=== PATIENT | male | born 1960 | race Caucasian/White ===

== ENCOUNTER 2017-02-05 09:00 | Inpatient (IN) ==
--- NOTE | 2017-02-03 09:29 | Cardiothoracic History & Phys ---
History of Present Illness Chief complaint: Chest pain History of present illness: Mr. Pederson is a 56 year old male who underwent stress testing as part of his employment physical. This was positive and the patient was advised to have cardiology evaluation. He was seen by Dr. Flores who recommended cardiac catheterization and cardiac cath revealed significant triple-vessel coronary disease and the patient was advised to have bypass surgery. He is to be admitted on 02/05/2017 surgery 02/06/2017. Past medical history: Patient has a history of dyslipidemia and hypertension and gastroesophageal reflux. He also has a history of type 2 diabetes mellitus. His past surgical history shows that he has had a hernia repair and repair of her rotator cuff tear. Family history is significant in that father had type 2 diabetes in both his mother and father had cancer. Patient has never been a smoker or drinker and his review of systems is noncontributory. Physical examination: Patient is well-developed well-nourished white man in no acute distress. Examination head eyes ears nose and throat showed pupils are equal and react to light and extraocular motions are intact. The oropharynx is benign. Examination of the neck shows that there are no masses and there is no thyromegaly and there are no bruits. Examination chest is clear to percussion and auscultation. Examination the heart shows regular sinus rhythm with no murmurs. Termination of the abdomen shows that it is soft nontender and there are no masses or organomegaly. Examination extremities shows no cyanosis or edema. Neurological examination is grossly within normal limits. Assessment: Three-vessel coronary artery disease. Plan: Coronary bypass surgery 02/06/2017. Home Medications Medication Instructions Recorded Confirmed Type Aspirin [Ecotrin] 81 mg PO DAILY 02/01/17 02/02/17 History Atorvastatin [Lipitor] 40 mg PO DAILY 02/01/17 02/02/17 History Carvedilol 12.5 mg PO BID 02/01/17 02/02/17 History Meloxicam [Mobic] 15 mg PO DAILY 02/01/17 02/02/17 History [place]-3 Fatty Acids [Fish Oil 1,000 mg PO BID 02/01/17 02/02/17 History Concentrate] Ramipril [Altace] 10 mg PO DAILY 02/01/17 02/02/17 History metFORMIN [Glucophage] 250 mg PO BID W/MEALS 02/01/17 02/02/17 History Allergies Allergy/AdvReac Type Severity Reaction Status Date / Time clopidogrel [From Plavix] Allergy RASH Verified 02/02/17 06:12 Medical,Surgical,& Family Hx - Medical History Neurology: No history of: Seizures - Social History Smoking Status: Never smoker
[~2017-02-05 09:00] MED LIST: ASPIRIN EC 81 MG TABLET PO SCH; ATORVASTATIN 40 MG TABLET PO SCH; DEXTROSE 50% 25 GM/50 ML SYRINGE IV PRN; GLUCAGON 1 MG VIAL IM PRN; MELOXICAM 7.5 MG TABLET PO SCH
[2017-02-05] MEDS: CHLORHEXIDINE 4% SOLN 118 ML BOTTLE TOP SCH ×2 (13:30→20:28)
[2017-02-05] MEDS ORDERED: CLORAZEPATE 3.75 MG TABLET PO PRN (13:38)
--- NOTE | 2017-02-05 13:53 | EKG Report ---
Stationary ECG Study [facility] Test Date: 02/05/2017 1:54:13 PM Pat Name: EDWARDO SPEAR Department: Room: 277 Gender: M Web Master: ARLETH : 1960 Requested by: John Owen Order Number: [id number] Reading MD: ANDREW SANDHU Intervals [place] Rate: 63 P: 62 MD: 156 QRS: 32 QRSD: 109 T: 29 QT: 384 QTc: 391 Interpretive Statements SINUS RHYTHM Electronically Signed On 02-06-17 07:42:58 CDT by ANDREW SANDHU [email or web address]
[2017-02-05 14:26] LABS: Basophils % 0.4 % (0.0-0.8); Eosinophils # 0.1 10*3/uL (0.0-0.87); Eosinophils % 2.4 % (0.00-10.9); Hematocrit 44.9 VOL% (42.0-52.0); Hemoglobin 15.7 GM/DL (14.0-18.0); Immature Granulocytes % 0.6 %; Immature Granulocytes Absolute 0.03 #; Lymphocytes # 1.9 10*3/uL (1.4-4.0); Lymphocytes % 34.6 % (21.2-54.2); Mean Corpuscular Hemoglobin 31 PG (27-34); Mean Platelet Volume 11.7 FL (9.6-12.0); Monocytes # 0.5 10*3/uL (0.11-0.8); Monocytes % 9.6 % (1.7-12.7); Neutrophils # 2.8 10*3/uL (1.4-7.4); Neutrophils % 52.4 % (38.7-73.9); Platelet Count 189 T/CUMM (130-400); Red Cell Distribution Width 12.8 % (9.3-17.3); White Blood Count 5.4 T/CUMM (4-12)
--- NOTE | 2017-02-05 14:59 | XRay Report ---
History: Coronary artery disease Date: 02/05/2017 Study: Chest x-ray PA and lateral Comparison exam: No previous chest x-ray currently available The cardiomediastinal silhouette and pulmonary vasculature are unremarkable. The lungs and pleural spaces are clear. The osseous structures are unremarkable, aside from some mild to moderate thoracic spondylosis. Impression: No acute cardiopulmonary process PROCEDURE INTERPRETED AT [facility] DEPARTMENT OF RADIOLOGY Final Report Signed by: Dr. Veronica Hahn
[2017-02-05 15:07] LABS: Albumin 3.9 G/DL (3.4-5.0); Bilirubin,Total 0.6 MG/DL (0.2-1.0); Calcium 9.3 MG/DL (8.5-10.1); Osmolality,Calculated 281.5 MOS/KG (273-304); Potassium 4.2 MMOL/L (3.5-5.1); Total Protein 6.8 G/DL (6.4-8.3)
[2017-02-05 16:27] LABS: ABG Base Excess 0.9 MMOL/L (-2.5-2.5); ABG HCO3 25.1 MMOL/L (20-26); ABG Oxygen Saturation 96.5 % (95-100); ABG PCO2 38.8 MM HG (35-48); ABG PO2 86.6 MM HG (80-95); ABG TCO2 21.3 MMOL/L (23-27)
[2017-02-05] MEDS: RAMIPRIL 5 MG CAPSULE PO SCH (16:32)
[2017-02-05] MEDS: CHLORHEXIDINE 0.12% ORAL RINSE 60 ML BOTTLE SWISH/SPIT SCH ×3 (16:33→20:28)
[2017-02-05] MEDS: OMEGA 3 ACID ETHYL ESTERS 1 GM CAPSULE PO SCH ×3 (16:33→20:27)
[2017-02-05] MEDS: SODIUM CHLORIDE 0.9% 1,000 ML IV SCH ×2 (16:35→16:36)
[2017-02-05] MEDS ORDERED: SODIUM CHLORIDE 0.9% 1,000 ML IV SCH (18:00)
[2017-02-05] MEDS: CARVEDILOL 12.5 MG TABLET PO SCH (20:27)
[2017-02-05] MEDS ORDERED: ATORVASTATIN 40 MG TABLET PO SCH (21:00)
[2017-02-05] MEDS ORDERED: ZALEPLON 5 MG CAPSULE PO SCH (21:00)
[2017-02-05] MEDS ORDERED: ASPIRIN EC 81 MG TABLET PO SCH (21:00)
[2017-02-06] MEDS ORDERED: PAPAVERINE 60 MG/2 ML VIAL ONE (04:40)
[2017-02-06] MEDS ORDERED: VANCOMYCIN 1,000 MG VIAL ONE ×3 (04:41→11:37)
[2017-02-06] MEDS ORDERED: FAMOTIDINE 20 MG/2 ML VIAL IV ONE (05:30)
[2017-02-06] MEDS ORDERED: LORazepam 2 MG/1 ML VIAL IV ONE (05:30)
[2017-02-06] MEDS ORDERED: SUFentanil 250 MCG/5 ML AMP ONE (05:31)
[2017-02-06] MEDS ORDERED: MIDAZOLAM 10 MG/2 ML VIAL ONE ×2 (05:32→12:06)
[2017-02-06 05:47] LABS: PT Patient Result 10.5 SECS; Partial Thromboplastin Time 26.5 SECS (0-40)
[2017-02-06] MEDS: CHLORHEXIDINE 4% SOLN 118 ML BOTTLE TOP SCH ×2 (05:50→08:32)
[2017-02-06] MEDS: CARVEDILOL 12.5 MG TABLET PO SCH ×2 (05:50→08:32)
[2017-02-06] MEDS: CHLORHEXIDINE 0.12% ORAL RINSE 60 ML BOTTLE SWISH/SPIT SCH ×3 (05:50→22:56)
[2017-02-06] MEDS: RAMIPRIL 5 MG CAPSULE PO SCH ×2 (05:58→08:32)
[2017-02-06] MEDS ORDERED: CEFUROXIME INJ 1,500 MG in SODIUM CHLORIDE 0.9% 100 ML IV ONE (06:00)
[2017-02-06 06:01] LABS: Calcium 8.8 MG/DL (8.5-10.1); Magnesium 2.7 MG/DL (1.8-2.4); Osmolality,Calculated 280.5 MOS/KG (273-304); Potassium 4.2 MMOL/L (3.5-5.1)
[2017-02-06] MEDS ORDERED: PHENYLEPHRINE 50 MG/5 ML VIAL ONE (06:47)
[2017-02-06] MEDS ORDERED: MINERAL OIL/PETROLATUM OPH OINT 3.5 GM TUBE ONE (06:47)
[2017-02-06] MEDS ORDERED: VECURONIUM 10 MG VIAL IV ONE (06:47)
[2017-02-06] MEDS ORDERED: AMINOCAPROIC ACID 5,000 MG/20 ML VIAL IV ONE (06:47)
[2017-02-06] MEDS ORDERED: CALCIUM CHLORIDE 1,000 MG/10 ML SYRINGE IV ONE (06:47)
[2017-02-06] MEDS ORDERED: NITROPRUSSIDE 50 MG/2 ML VIAL ONE (07:26)
[2017-02-06] MEDS ORDERED: PHENYLEPHRINE DRIP 40 MG/250 ML PREMIX IV ONE (07:26)
[2017-02-06] MEDS ORDERED: ALBUMIN 5% 12.5 GM/250 ML VIAL IV ONE (07:27)
[2017-02-06] MEDS ORDERED: POTASSIUM CHLORIDE RIDER 100 ML IV ONE (07:27)
[2017-02-06] MEDS ORDERED: ATROPINE 1 MG/1 ML VIAL ONE (07:27)
[2017-02-06] MEDS ORDERED: LIDOCAINE 100 MG/5 ML SYRINGE ONE (07:27)
[2017-02-06] MEDS ORDERED: SODIUM BICARBONATE 50 MEQ/50 ML SYRINGE IV ONE ×2 (07:27→10:42)
[2017-02-06] MEDS ORDERED: EPINEPHrine 1 MG/10 ML SYRINGE ONE (07:27)
[2017-02-06 07:33] LABS: ABG Base Excess -1.2 MMOL/L (-2.5-2.5); ABG HCO3 23.4 MMOL/L (20-26); ABG Oxygen Saturation 99.9 % (95-100); ABG PCO2 42.7 MM HG (35-48); ABG PH 7.364 (7.35-7.45); ABG TCO2 20.9 MMOL/L (23-27); Glucose Heart Surgery 127 MG/DL (74-106); Hematocrit Heart Surgery 44.6 PERCENT (42-52); Hemoglobin Heart Surgery 14.5 G/DL (14.0-18.0); Ionized Calcium Arterial 1.17 MMOL/L (1.21-1.46); PCO2 Patient Temp Arterial 42.7 MMHG; PH Patient Temp Arterial 7.364; Patient Temperature 37 CELCIUS; Potassium Heart/CVR 4.3 MMOL/L (3.5-5.1); Sodium Heart/CVR 138 MMOL/L (135-145)
[2017-02-06 07:52] LABS: Apearance,Urine CLEAR (Clear); Bilirubin,Urine Negative (Negative); Blood, Urine Negative (Negative); Glucose,Urine (UA) Negative (Negative); Ketones,Urine Negative (Negative); Nitrite,Urine Negative (Negative); Protein,Urine Negative; RBC,Urine 1 /HPF (0-4); Urine Color Straw (Yellow); Urine Specific Gravity 1.008 (1.001-1.035); Urine Urobilinogen < 2.0 EU/DL (0.2-1.0); WBC,Urine <1 /HPF (0-6)
[2017-02-06] MEDS: OMEGA 3 ACID ETHYL ESTERS 1 GM CAPSULE PO SCH (08:32)
[2017-02-06 09:18] LABS: Hematocrit Heart Surgery 29.6 PERCENT (42-52); Hemoglobin Heart Surgery 9.6 G/DL (14.0-18.0); PCO2 Patient Temp Venous 39.8 MM HG; PH Patient Temp Venous 7.411; VBG Base Excess 0.9 MEQ/L (0-4); VBG HCO3 24.8 MEQ/L (24-28); VBG PCO2 46.1 MMHG (41-51); VBG PH 7.368; VBG PO2 41.9 MMHG (17-40)
[2017-02-06 09:19] LABS: Potassium Heart/CVR 6.6 MMOL/L (3.5-5.1)
[2017-02-06 09:49] LABS: Hematocrit Heart Surgery 35.7 PERCENT (42-52); Hemoglobin Heart Surgery 11.6 G/DL (14.0-18.0); PCO2 Patient Temp Venous 39.9 MM HG; PH Patient Temp Venous 7.386; PO2 Patient Temp Venous 37.4 MM HG; Potassium Heart/CVR 6.3 MMOL/L (3.5-5.1); VBG HCO3 23.2 MEQ/L (24-28); VBG PCO2 46.1 MMHG (41-51); VBG PH 7.343
[2017-02-06 10:40] LABS: ABG Base Excess -1.6 MMOL/L (-2.5-2.5); ABG Oxygen Saturation 96.8 % (95-100); ABG PCO2 44.4 MM HG (35-48); ABG PH 7.345 (7.35-7.45); ABG PO2 92.9 MM HG (80-95); ABG TCO2 21.6 MMOL/L (23-27); Glucose Heart Surgery 173 MG/DL (74-106); Hematocrit Heart Surgery 37.7 PERCENT (42-52); Hemoglobin Heart Surgery 12.3 G/DL (14.0-18.0); Ionized Calcium Arterial 1.24 MMOL/L (1.21-1.46); PCO2 Patient Temp Arterial 44.4 MMHG; PH Patient Temp Arterial 7.345; PO2 Patient Temp Arterial 92.9 MM HG; Patient Temperature 37 CELCIUS; Potassium Heart/CVR 3.9 MMOL/L (3.5-5.1); Sodium Heart/CVR 134 MMOL/L (135-145)
[2017-02-06] MEDS ORDERED: methylPREDNISolone SOD SUC 1,000 MG/8 ML VIAL ONE (10:42)
[2017-02-06] MEDS ORDERED: HEPARIN 10,000 UNIT/10 ML VIAL ONE (10:42)
[2017-02-06] MEDS ORDERED: DEXTROSE 5% KCL 20 MEQ 20 MEQ/1,000 ML BAG IV ONE (10:42)
[2017-02-06] MEDS ORDERED: PROTAMINE SULFATE 250 MG/25 ML VIAL IV ONE (10:42)
[2017-02-06] MEDS ORDERED: MAGNESIUM SULFATE 1 GM/2 ML VIAL ONE (10:42)
[2017-02-06] MEDS ORDERED: ALBUMIN 25% 25 GM/100 ML VIAL IV ONE (10:42)
[2017-02-06] MEDS ORDERED: FUROSEMIDE 20 MG/2 ML VIAL ONE (10:42)
[2017-02-06] MEDS ORDERED: MANNITOL 12.5 GM/50 ML VIAL IV ONE (10:42)
--- NOTE | 2017-02-06 11:27 | Operative Note ---
Date of procedure: 02/06/17 Pre-op diagnosis: Coronary artery disease Post-op diagnosis: same Procedure: Procedure: Coronary bypass grafting 3 with a left internal mammary graft to the anterior descending coronary artery saphenous vein grafts to the obtuse marginal and right posterior descending coronary arteries. Findings: Patient is a 56-year-old man who presented with substernal chest discomfort and cardiac catheterization demonstrating severe triple-vessel coronary disease. Sinus surgery left ventricular function was noted to be essentially within normal limits. Saphenous vein grafts were placed to the right posterior descending and left obtuse marginal coronary arteries. An internal mammary graft was placed to the anterior descending coronary artery. All distal vessels were free of disease at the site of anastomosis and of adequate size. Patient tolerated the procedure well and was returned to recovery in satisfactory condition. Procedure: Patient was brought to the operating room placed on the operating table in supine position. After satisfactory induction of general anesthesia the chest abdomen and legs were prepped and draped in sterile fashion. Greater saphenous vein was harvested from each lower leg and prepared to start as an arterial graft. Incisions in the legs were closed with subcutaneous 3-0 Monocryl in subcuticular 3-0 Monocryl. A standard sternotomy incision was made in the sternum was divided and the heart suspended in a pericardial cradle. Left internal mammary artery was dissected free and prepared as an arterial graft. Patient was prepared for cardiopulmonary bypass with systemic heparinization and cannulation of the ascending aorta and right atrium. Cardiopulmonary bypass was begun and aorta was crossclamped and the heart arrested with cardioplegia solution injected into the aortic root. Heart was protected during the period of crossclamping with topical saline slush. Distal anastomoses were constructed as noted above and then the aorta was unclamped reestablishing cardiac action. Proximal anastomoses were constructed between the ascending aorta and the saphenous vein grafts and then the patient was weaned from cardiopulmonary bypass without difficulty. Heparin effect was reversed with protamine and decannulation carried out with a defects in the ascending aorta and right atrium closed with 3-0 Prolene. The operative field was inspected for hemostasis and this was considered adequate incision was closed with interrupted stainless steel wire and the sternum 0 Monopril in the presternal fascia. Skin was closed with 3-0 subcuticular Monocryl. 2 chest tubes were left in the anterior mediastinum and brought out through separate stab incisions. Sterile dressings were applied the patient was returned to recovery in satisfactory condition. Anesthesia: LILIANA Surgeon / Physician: John Atkins Estimated blood loss: other (Unable to determine because of cardiopulmonary bypass) Condition: stable Disposition: ICU Results - Labs CBC & BMP: 02/06/17 10:35 02/06/17 05:13 Discharge Plan - Discharge Medications No Action Ramipril [Altace] 10 mg PO DAILY [place]-3 Fatty Acids [Fish Oil Concentrate] 1,000 mg PO BID Atorvastatin [Lipitor] 40 mg PO BEDTIME Aspirin [Ecotrin] 81 mg PO BEDTIME metFORMIN [Glucophage] 500 mg PO BID Carvedilol 12.5 mg PO BID - Follow Up or Referral - Forms/Instructions
[2017-02-06] MEDS: LACTATED RINGERS 1,000 ML IV PRN ×3 (11:30→12:09)
[2017-02-06] MEDS ORDERED: PROTAMINE SULFATE 50 MG/5 ML VIAL IV ONE ×2 (11:31→12:45)
[2017-02-06] MEDS: ALBUMIN 5% 12.5 GM in PREMIX 1 EACH IV PRN ×3 (12:04→12:55)
[2017-02-06] MEDS ORDERED: VECURONIUM 10 MG VIAL IV PRN ×2 (12:07)
[2017-02-06] MEDS ORDERED: MIDAZOLAM 10 MG/2 ML VIAL IV PRN (12:07)
[2017-02-06] MEDS ORDERED: DEXTROSE 50% 25 GM/50 ML SYRINGE IV PRN ×2 (12:07)
[2017-02-06] MEDS ORDERED: INSULIN REGULAR 100 UNIT/ML IV ONE (12:07)
[2017-02-06] MEDS ORDERED: INSULIN REGULAR DRIP 100 ML IV SCH (12:07)
[2017-02-06] MEDS ORDERED: PHENYLEPHRINE DRIP 40 MG/250 ML PREMIX IV PRN (12:07)
[2017-02-06] MEDS ORDERED: SUFentanil 50 MCG/ML AMP ONE (12:07)
[2017-02-06] MEDS ORDERED: INSULIN REGULAR 100 UNIT/ML IV PRN (12:07)
[2017-02-06] MEDS ORDERED: MIDAZOLAM 2 MG/2 ML VIAL IV PRN (12:07)
[2017-02-06] MEDS ORDERED: CALCIUM CHLORIDE 1,000 MG/10 ML SYRINGE IV PRN (12:07)
[2017-02-06] MEDS ORDERED: ONDANSETRON 4 MG/2 ML VIAL IV PRN (12:07)
[2017-02-06] MEDS ORDERED: ACETAMINOPHEN 650 MG SUPP RECTAL PRN (12:07)
[2017-02-06] MEDS ORDERED: MEPERIDINE 25 MG/1 ML VIAL IV PRN (12:07)
[2017-02-06] MEDS ORDERED: MAGNESIUM SULF RIDER 4 GM in PREMIX 1 EACH IV PRN (12:07)
[2017-02-06] MEDS ORDERED: LACTATED RINGERS 250 ML IV PRN (12:07)
[2017-02-06] MEDS ORDERED: SODIUM CHLORIDE 0.45% 1,000 ML IV SCH ×2 (12:07)
[2017-02-06] MEDS ORDERED: NITROPRUSSIDE 100 MG in DEXTROSE 5% 250 ML IV PRN (12:07)
[2017-02-06] MEDS ORDERED: MAGNESIUM SULF RIDER 2 GM in PREMIX 1 EACH IV PRN (12:07)
[2017-02-06 12:13] LABS: Basophils % 0.1 % (0.0-0.8); Eosinophils # 0.1 10*3/uL (0.0-0.87); Eosinophils % 0.6 % (0.00-10.9); Hematocrit 30.4 VOL% (42.0-52.0); Hemoglobin 10.4 GM/DL (14.0-18.0); Immature Granulocytes Absolute 0.08 #; Mean Corpuscular HGB Conc 34.2 GM/DL (32-36); Mean Corpuscular Hemoglobin 31 PG (27-34); Mean Corpuscular Volume 90.5 FL (87-102); Mean Platelet Volume 11.5 FL (9.6-12.0); Monocytes # 0.4 10*3/uL (0.11-0.8); Monocytes % 4.9 % (1.7-12.7); Neutrophils # 6.7 10*3/uL (1.4-7.4); Neutrophils % 81.4 % (38.7-73.9); Platelet Count 116 T/CUMM (130-400); Red Blood Count 3.36 MC/CUMM (3.8-5.5); Red Cell Distribution Width 12.8 % (9.3-17.3); White Blood Count 8.2 T/CUMM (4-12)
[2017-02-06 12:19] LABS: ABG Base Excess -3.6 MMOL/L (-2.5-2.5); ABG HCO3 21.4 MMOL/L (20-26); ABG Oxygen Saturation 99.2 % (95-100); ABG PCO2 46.9 MM HG (35-48); ABG PH 7.299 (7.35-7.45); ABG TCO2 21.1 MMOL/L (23-27); Glucose Heart Surgery 133 MG/DL (74-106); Hematocrit Heart Surgery 31.4 PERCENT (42-52); Hemoglobin Heart Surgery 10.2 G/DL (14.0-18.0); Potassium Heart/CVR 3.5 MMOL/L (3.5-5.1)
[2017-02-06] MEDS: POTASSIUM CHLORIDE RIDER 20 MEQ in PREMIX 1 EACH IV PRN ×6 (12:21→22:35)
[2017-02-06] MEDS: KETOROLAC 30 MG/1 ML VIAL IV SCH ×3 (12:25→23:48)
[2017-02-06 12:30] LABS: INR 1.3; PT Patient Result 14.1 SECS; Partial Thromboplastin Time 34.5 SECS (0-40)
[2017-02-06] MEDS ORDERED: ePHEDrine 50 MG/ML AMP ONE (12:36)
[2017-02-06 12:48] LABS: Albumin 2.6 G/DL (3.4-5.0); Bilirubin,Total 0.8 MG/DL (0.2-1.0); Calcium 8.1 MG/DL (8.5-10.1); Magnesium 2.2 MG/DL (1.8-2.4); Osmolality,Calculated 283.3 MOS/KG (273-304); Potassium 3.8 MMOL/L (3.5-5.1); Total Protein 4.2 G/DL (6.4-8.3)
[2017-02-06] MEDS: POTASSIUM CHLORIDE RIDER 10 MEQ in PREMIX 1 EACH IV PRN ×2 (12:51→23:15)
[2017-02-06 13:06] LABS: CKMB % 4.1 %
[2017-02-06 13:08] LABS: Troponin I Only 4.21 NG/ML (0.00-0.045)
--- NOTE | 2017-02-06 13:20 | Cardiothoracic Progress Note ---
Cardiothoracic Subjective Interval history: [place]-Angelica catheter placed via the right subclavian vein. Exam (Progress Note) - Constitutional Vitals: Period Temp Pulse Resp BP Sys/Arvizu Pulse Ox Last 24 Hr 97.5 F-98.6 F 57-75 16-20 122-153/64-78 96-98 Result/EKG - Labs CBC & BMP: 02/06/17 11:28 02/06/17 11:55 Labs: Laboratory Results - last 24 hr 02/05/17 02/05/17 02/05/17 09:29 14:01 14:01 WBC 5.4 RBC 5.10 Hgb 15.7 Hct 44.9 MCV 88.0 MCH 31 MCHC 35.0 RDW 12.8 Plt Count 189 MPV 11.7 Neut % (Auto) 52.4 Lymph % (Auto) 34.6 [place] % (Auto) 9.6 Eos % (Auto) 2.4 Baso % (Auto) 0.4 Neut # (Auto) 2.8 Lymph # (Auto) 1.9 [place] # (Auto) 0.5 Eos # (Auto) 0.1 Baso # (Auto) 0.0 Immature Gran % 0.6 Nucleated RBC % 0.0 Immature Gran # 0.03 Nucleated RBCs # 0.00 Immature Plt Fraction 0.0 INR PT Patient/Control Mix Circ Anticoag PTT Patient Temperature ABG pH 7.420 ABG pH at Pt Temp ABG pCO2 38.8 ABG pCO2 at Pt Temp ABG pO2 86.6 ABG pO2 at Pt Temp ABG HCO3 25.1 ABG Total CO2 21.3 L ABG O2 Saturation 96.5 ABG Base Excess 0.9 ABG Sodium VBG pH VBG pCO2 VBG pO2 VBG HCO3 VBG Total CO2 VBG O2 Saturation VBG Base Excess Hemoglobin Hematocrit Ionized Calcium FiO2 21.00 Sodium 139 Potassium 4.2 Chloride 104 Carbon Dioxide 27 Anion Gap 12.2 BUN 21 H Creatinine 1.30 GFR Calculation 75 BUN/Creatinine Ratio 16.00 Glucose 141 H POC Glucose Calculated Osmolality 281.5 Calcium 9.3 Venous Ioniz Calcium Magnesium Total Bilirubin 0.60 AST 28 ALT 59 Alkaline Phosphatase 70 Total Creatine Kinase CK-MB (CK-2) CK and CKMB Interp Troponin I Total Protein 6.8 Albumin 3.9 Globulin 2.9 Albumin/Globulin Ratio 1.3 Urine Color Urine Appearance Urine pH Ur Specific [place] Urine Protein Urine Glucose (UA) Urine Ketones Urine Blood Urine Nitrate Urine Bilirubin Urine Urobilinogen Urine Leukocytes Urine RBC Urine WBC Ur Culture Indicated? Blood Type Antibody Screen Crossmatch 02/05/17 02/05/17 02/06/17 14:01 16:39 04:50 WBC RBC Hgb Hct MCV MCH MCHC RDW Plt Count MPV Neut % (Auto) Lymph % (Auto) [place] % (Auto) Eos % (Auto) Baso % (Auto) Neut # (Auto) Lymph # (Auto) [place] # (Auto) Eos # (Auto) Baso # (Auto) Immature Gran % Nucleated RBC % Immature Gran # Nucleated RBCs # Immature Plt Fraction INR PT Patient/Control Mix Circ Anticoag PTT Patient Temperature ABG pH ABG pH at Pt Temp ABG pCO2 ABG pCO2 at Pt Temp ABG pO2 ABG pO2 at Pt Temp ABG HCO3 ABG Total CO2 ABG O2 Saturation ABG Base Excess ABG Sodium VBG pH VBG pCO2 VBG pO2 VBG HCO3 VBG Total CO2 VBG O2 Saturation VBG Base Excess Hemoglobin Hematocrit Ionized Calcium FiO2 Sodium Potassium Chloride Carbon Dioxide Anion Gap BUN Creatinine GFR Calculation BUN/Creatinine Ratio Glucose POC Glucose 113 H Calculated Osmolality Calcium Venous Ioniz Calcium Magnesium Total Bilirubin AST ALT Alkaline Phosphatase Total Creatine Kinase CK-MB (CK-2) CK and CKMB Interp Troponin I Total Protein Albumin Globulin Albumin/Globulin Ratio Urine Color Urine Appearance Urine pH Ur Specific [place] Urine Protein Urine Glucose (UA) Urine Ketones Urine Blood Urine Nitrate Urine Bilirubin Urine Urobilinogen Urine Leukocytes Urine RBC Urine WBC Ur Culture Indicated? Blood Type A POSITIVE A POSITIVE Antibody Screen Negative Crossmatch See Detail 02/06/17 02/06/17 02/06/17 05:13 05:13 07:30 WBC RBC Hgb Hct MCV MCH MCHC RDW Plt Count 85 L D MPV Neut % (Auto) Lymph % (Auto) [place] % (Auto) Eos % (Auto) Baso % (Auto) Neut # (Auto) Lymph # (Auto) [place] # (Auto) Eos # (Auto) Baso # (Auto) Immature Gran % Nucleated RBC % Immature Gran # Nucleated RBCs # Immature Plt Fraction INR 1.0 PT Patient/Control Mix 10.5 Circ Anticoag PTT 26.5 Patient Temperature ABG pH ABG pH at Pt Temp ABG pCO2 ABG pCO2 at Pt Temp ABG pO2 ABG pO2 at Pt Temp ABG HCO3 ABG Total CO2 ABG O2 Saturation ABG Base Excess ABG Sodium VBG pH VBG pCO2 VBG pO2 VBG HCO3 VBG Total CO2 VBG O2 Saturation VBG Base Excess Hemoglobin Hematocrit Ionized Calcium FiO2 Sodium 139 Potassium 4.2 Chloride 105 Carbon Dioxide 25 Anion Gap 13.2 BUN 20 H Creatinine 1.10 GFR Calculation 92 BUN/Creatinine Ratio 18.00 Glucose 121 H POC Glucose Calculated Osmolality 280.5 Calcium 8.8 Venous Ioniz Calcium Magnesium 2.7 H Total Bilirubin AST ALT Alkaline Phosphatase Total Creatine Kinase CK-MB (CK-2) CK and CKMB Interp Troponin I Total Protein Albumin Globulin Albumin/Globulin Ratio Urine Color Urine Appearance Urine pH Ur Specific [place] Urine Protein Urine Glucose (UA) Urine Ketones Urine Blood Urine Nitrate Urine Bilirubin Urine Urobilinogen Urine Leukocytes Urine RBC Urine WBC Ur Culture Indicated? Blood Type Antibody Screen Crossmatch 02/06/17 02/06/17 02/06/17 07:30 07:45 09:15 WBC RBC Hgb Hct MCV MCH MCHC RDW Plt Count MPV Neut % (Auto) Lymph % (Auto) [place] % (Auto) Eos % (Auto) Baso % (Auto) Neut # (Auto) Lymph # (Auto) [place] # (Auto) Eos # (Auto) Baso # (Auto) Immature Gran % Nucleated RBC % Immature Gran # Nucleated RBCs # Immature Plt Fraction INR PT Patient/Control Mix Circ Anticoag PTT Patient Temperature 37 34 ABG pH 7.364 ABG pH at Pt Temp 7.364 7.411 ABG pCO2 42.7 ABG pCO2 at Pt Temp 42.7 39.8 ABG pO2 278.0 H ABG pO2 at Pt Temp 278.0 34.0 ABG HCO3 23.4 ABG Total CO2 20.9 L ABG O2 Saturation 99.9 ABG Base Excess -1.2 ABG Sodium 138 127 L VBG pH 7.368 VBG pCO2 46.1 VBG pO2 41.9 H VBG HCO3 24.8 VBG Total CO2 24.4 VBG O2 Saturation 76.0 VBG Base Excess 0.9 Hemoglobin 14.5 9.6 L D Hematocrit 44.6 29.6 L Ionized Calcium 1.17 L FiO2 80.00 Sodium Potassium 4.3 6.6 H* Chloride Carbon Dioxide Anion Gap BUN Creatinine GFR Calculation BUN/Creatinine Ratio Glucose 127 H 348 H POC Glucose Calculated Osmolality Calcium Venous Ioniz Calcium 0.91 L Magnesium Total Bilirubin AST ALT Alkaline Phosphatase Total Creatine Kinase CK-MB (CK-2) CK and CKMB Interp Troponin I Total Protein Albumin Globulin Albumin/Globulin Ratio Urine Color Straw Urine Appearance Clear Urine pH 5.0 Ur Specific [place] 1.008 Urine Protein Negative Urine Glucose (UA) Negative Urine Ketones Negative Urine Blood Negative Urine Nitrate Negative Urine Bilirubin Negative Urine Urobilinogen < 2.0 H Urine Leukocytes Negative Urine RBC 1 Urine WBC <1 Ur Culture Indicated? Not indicated Blood Type Antibody Screen Crossmatch 02/06/17 02/06/17 02/06/17 09:45 10:35 10:35 WBC RBC Hgb Hct MCV MCH MCHC RDW Plt Count 100 L MPV Neut % (Auto) Lymph % (Auto) [place] % (Auto) Eos % (Auto) Baso % (Auto) Neut # (Auto) Lymph # (Auto) [place] # (Auto) Eos # (Auto) Baso # (Auto) Immature Gran % Nucleated RBC % Immature Gran # Nucleated RBCs # Immature Plt Fraction INR PT Patient/Control Mix Circ Anticoag PTT Patient Temperature 34 37 ABG pH 7.345 L ABG pH at Pt Temp 7.386 7.345 ABG pCO2 44.4 ABG pCO2 at Pt Temp 39.9 44.4 ABG pO2 92.9 ABG pO2 at Pt Temp 37.4 92.9 ABG HCO3 23.0 ABG Total CO2 21.6 L ABG O2 Saturation 96.8 ABG Base Excess -1.6 ABG Sodium 130 L 134 L VBG pH 7.343 VBG pCO2 46.1 VBG pO2 46.0 H VBG HCO3 23.2 L VBG Total CO2 22.6 VBG O2 Saturation 79.0 VBG Base Excess -1.0 L Hemoglobin 11.6 L D 12.3 L Hematocrit 35.7 L 37.7 L Ionized Calcium 1.24 FiO2 80.00 Sodium Potassium 6.3 H* 3.9 Chloride Carbon Dioxide Anion Gap BUN Creatinine GFR Calculation BUN/Creatinine Ratio Glucose 240 H 173 H POC Glucose Calculated Osmolality Calcium Venous Ioniz Calcium 0.99 L Magnesium Total Bilirubin AST ALT Alkaline Phosphatase Total Creatine Kinase CK-MB (CK-2) CK and CKMB Interp Troponin I Total Protein Albumin Globulin Albumin/Globulin Ratio Urine Color Urine Appearance Urine pH Ur Specific [place] Urine Protein Urine Glucose (UA) Urine Ketones Urine Blood Urine Nitrate Urine Bilirubin Urine Urobilinogen Urine Leukocytes Urine RBC Urine WBC Ur Culture Indicated? Blood Type Antibody Screen Crossmatch 02/06/17 02/06/17 02/06/17 11:28 11:28 11:55 WBC 8.2 D RBC 3.36 L D Hgb 10.4 L D Hct 30.4 L MCV 90.5 MCH 31 MCHC 34.2 RDW 12.8 Plt Count 116 L MPV 11.5 Neut % (Auto) 81.4 H Lymph % (Auto) 12.0 L [place] % (Auto) 4.9 Eos % (Auto) 0.6 Baso % (Auto) 0.1 Neut # (Auto) 6.7 Lymph # (Auto) 1.0 L [place] # (Auto) 0.4 Eos # (Auto) 0.1 Baso # (Auto) 0.0 Immature Gran % 1.0 Nucleated RBC % 0.0 Immature Gran # 0.08 Nucleated RBCs # 0.00 Immature Plt Fraction 0.0 INR 1.3 PT Patient/Control Mix 14.1 D Circ Anticoag PTT 34.5 D Patient Temperature ABG pH 7.299 L ABG pH at Pt Temp ABG pCO2 46.9 ABG pCO2 at Pt Temp ABG pO2 186.0 H ABG pO2 at Pt Temp ABG HCO3 21.4 ABG Total CO2 21.1 L ABG O2 Saturation 99.2 ABG Base Excess -3.6 L ABG Sodium VBG pH VBG pCO2 VBG pO2 VBG HCO3 VBG Total CO2 VBG O2 Saturation VBG Base Excess Hemoglobin 10.2 L D Hematocrit 31.4 L Ionized Calcium FiO2 Sodium Potassium 3.5 Chloride Carbon Dioxide Anion Gap BUN Creatinine GFR Calculation BUN/Creatinine Ratio Glucose 133 H POC Glucose Calculated Osmolality Calcium Venous Ioniz Calcium Magnesium Total Bilirubin AST ALT Alkaline Phosphatase Total Creatine Kinase CK-MB (CK-2) CK and CKMB Interp Troponin I Total Protein Albumin Globulin Albumin/Globulin Ratio Urine Color Urine Appearance Urine pH Ur Specific [place] Urine Protein Urine Glucose (UA) Urine Ketones Urine Blood Urine Nitrate Urine Bilirubin Urine Urobilinogen Urine Leukocytes Urine RBC Urine WBC Ur Culture Indicated? Blood Type Antibody Screen Crossmatch 02/06/17 02/06/17 11:55 11:55 WBC RBC Hgb Hct MCV MCH MCHC RDW Plt Count MPV Neut % (Auto) Lymph % (Auto) [place] % (Auto) Eos % (Auto) Baso % (Auto) Neut # (Auto) Lymph # (Auto) [place] # (Auto) Eos # (Auto) Baso # (Auto) Immature Gran % Nucleated RBC % Immature Gran # Nucleated RBCs # Immature Plt Fraction INR PT Patient/Control Mix Circ Anticoag PTT Patient Temperature ABG pH ABG pH at Pt Temp ABG pCO2 ABG pCO2 at Pt Temp ABG pO2 ABG pO2 at Pt Temp ABG HCO3 ABG Total CO2 ABG O2 Saturation ABG Base Excess ABG Sodium VBG pH VBG pCO2 VBG pO2 VBG HCO3 VBG Total CO2 VBG O2 Saturation VBG Base Excess Hemoglobin Hematocrit Ionized Calcium FiO2 Sodium 141 Potassium 3.8 Chloride 107 Carbon Dioxide 24 Anion Gap 13.8 BUN 16 Creatinine 1.00 GFR Calculation 103 BUN/Creatinine Ratio 16.00 Glucose 126 H POC Glucose Calculated Osmolality 283.3 Calcium 8.1 L Venous Ioniz Calcium Magnesium 2.2 Total Bilirubin 0.80 AST 28 ALT 32 Alkaline Phosphatase 38 L Total Creatine Kinase 362 H CK-MB (CK-2) 15.0 H CK and CKMB Interp 4.1 Troponin I 4.210 H Total Protein 4.2 L Albumin 2.6 L Globulin 1.6 L Albumin/Globulin Ratio 1.6 Urine Color Urine Appearance Urine pH Ur Specific [place] Urine Protein Urine Glucose (UA) Urine Ketones Urine Blood Urine Nitrate Urine Bilirubin Urine Urobilinogen Urine Leukocytes Urine RBC Urine WBC Ur Culture Indicated? Blood Type Antibody Screen Crossmatch Quality Measures - VTE Contraindication to Pharmacological VTE Prophylaxis: High Risk of Bleeding
[2017-02-06 13:46] LABS: ABG Base Excess -1.2 MMOL/L (-2.5-2.5); ABG HCO3 23.4 MMOL/L (20-26); ABG Oxygen Saturation 99.1 % (95-100); ABG PCO2 43.3 MM HG (35-48); ABG PH 7.357 (7.35-7.45); Glucose Heart Surgery 145 MG/DL (74-106); Hematocrit Heart Surgery 33.6 PERCENT (42-52); Hemoglobin Heart Surgery 10.9 G/DL (14.0-18.0); Potassium Heart/CVR 4.2 MMOL/L (3.5-5.1)
--- NOTE | 2017-02-06 13:49 | XRay Report ---
Portable chest. Indication: Line placement. Comparison: February 05, 2017. There has been an interval median sternotomy. An endotracheal tube and nasogastric tube are in satisfactory position. A [place]-Angelica catheter and right IJ line are in satisfactory position. The pulmonary vasculature is normal. The right lung is clear. There is atelectasis present in the left midlung field and a small left pleural effusion. No pneumothorax. Mediastinal chest tubes are seen at the midline. Impression: Left basilar atelectasis and small left pleural effusion. PROCEDURE INTERPRETED AT [facility] DEPARTMENT OF RADIOLOGY Final Report Signed by: Dr. Paulina Livingston
[2017-02-06 16:23] LABS: ABG Base Excess -1.3 MMOL/L (-2.5-2.5); ABG HCO3 23.3 MMOL/L (20-26); ABG Oxygen Saturation 96.8 % (95-100); ABG PCO2 38.9 MM HG (35-48); ABG PH 7.396 (7.35-7.45); ABG PO2 101.1 MM HG (80-95); ABG TCO2 24.5 MMOL/L (23-27); Glucose Heart Surgery 190 MG/DL (74-106); Hemoglobin Heart Surgery 11.2 G/DL (14.0-18.0); Potassium Heart/CVR 4.3 MMOL/L (3.5-5.1)
[2017-02-06 18:24] LABS: ABG Base Excess -1.9 MMOL/L (-2.5-2.5); ABG HCO3 20.8 MMOL/L (20-26); ABG Oxygen Saturation 96.6 % (95-100); ABG PCO2 28.9 MM HG (35-48); ABG PH 7.474 (7.35-7.45); ABG PO2 88.3 MM HG (80-95); ABG TCO2 21.6 MMOL/L (23-27); Glucose Heart Surgery 208 MG/DL (74-106); Hemoglobin Heart Surgery 11.2 G/DL (14.0-18.0); Potassium Heart/CVR 4.3 MMOL/L (3.5-5.1)
[2017-02-06] MEDS: INSULIN REGULAR 100 UNIT/ML SUBCUT SCH ×2 (18:30→22:38)
[2017-02-06] MEDS: CEFUROXIME INJ 1,500 MG in SODIUM CHLORIDE 0.9% 100 ML IV SCH (19:43)
[2017-02-06 20:00] LABS: ABG Base Excess -2.8 MMOL/L (-2.5-2.5); ABG HCO3 19.5 MMOL/L (20-26); ABG Oxygen Saturation 95.8 % (95-100); ABG PCO2 26.4 MM HG (35-48); ABG PH 7.486 (7.35-7.45); ABG PO2 78.6 MM HG (80-95); ABG TCO2 20.3 MMOL/L (23-27); Glucose Heart Surgery 208 MG/DL (74-106); Hemoglobin Heart Surgery 10.7 G/DL (14.0-18.0); Potassium Heart/CVR 4.1 MMOL/L (3.5-5.1)
[2017-02-06 20:35] LABS: CKMB % 3.5 %
[2017-02-06 20:40] LABS: Troponin I Only 3.89 NG/ML (0.00-0.045)
[2017-02-06 20:52] LABS: ABG Base Excess -2.6 MMOL/L (-2.5-2.5); ABG HCO3 19.5 MMOL/L (20-26); ABG PH 7.494 (7.35-7.45); ABG PO2 98.1 MM HG (80-95); ABG TCO2 20.3 MMOL/L (23-27); Glucose Heart Surgery 202 MG/DL (74-106); Hemoglobin Heart Surgery 10.6 G/DL (14.0-18.0); Potassium Heart/CVR 4.4 MMOL/L (3.5-5.1)
[2017-02-06 22:18] LABS: ABG Base Excess -1.8 MMOL/L (-2.5-2.5); ABG HCO3 22.9 MMOL/L (20-26); ABG PCO2 27.8 MM HG (35-48); ABG PO2 80.7 MM HG (80-95); ABG TCO2 18.7 MMOL/L (23-27); Glucose Heart Surgery 208 MG/DL (74-106); Hemoglobin Heart Surgery 10.4 G/DL (14.0-18.0); Potassium Heart/CVR 3.8 MMOL/L (3.5-5.1)
[2017-02-06 23:15] LABS: ABG Base Excess -2.7 MMOL/L (-2.5-2.5); ABG HCO3 22.1 MMOL/L (20-26); ABG Oxygen Saturation 94.1 % (95-100); ABG PCO2 33.4 MM HG (35-48); ABG PH 7.411 (7.35-7.45); ABG PO2 70.5 MM HG (80-95); ABG TCO2 19.2 MMOL/L (23-27); Glucose Heart Surgery 198 MG/DL (74-106); Hemoglobin Heart Surgery 10.3 G/DL (14.0-18.0); Potassium Heart/CVR 4.4 MMOL/L (3.5-5.1)
[2017-02-07 02:17] LABS: ABG HCO3 22.7 MMOL/L (20-26); ABG Oxygen Saturation 95.9 % (95-100); ABG PCO2 36.2 MM HG (35-48); ABG PO2 80.9 MM HG (80-95); ABG TCO2 20.3 MMOL/L (23-27); Glucose Heart Surgery 184 MG/DL (74-106); Hematocrit Heart Surgery 32.3 PERCENT (42-52); Hemoglobin Heart Surgery 10.4 G/DL (14.0-18.0); Potassium Heart/CVR 4.2 MMOL/L (3.5-5.1)
[2017-02-07] MEDS: INSULIN REGULAR 100 UNIT/ML SUBCUT SCH ×6 (02:39→23:03)
[2017-02-07] MEDS: POTASSIUM CHLORIDE RIDER 20 MEQ in PREMIX 1 EACH IV PRN (02:44)
[2017-02-07 02:55] LABS: Hematocrit 30.1 VOL% (42.0-52.0); Hemoglobin 10.4 GM/DL (14.0-18.0); Immature Granulocytes % 0.6 %; Immature Granulocytes Absolute 0.07 #; Lymphocytes # 0.8 10*3/uL (1.4-4.0); Lymphocytes % 6.2 % (21.2-54.2); Mean Corpuscular HGB Conc 34.6 GM/DL (32-36); Mean Corpuscular Hemoglobin 31 PG (27-34); Mean Corpuscular Volume 88.8 FL (87-102); Mean Platelet Volume 12.2 FL (9.6-12.0); Monocytes # 0.7 10*3/uL (0.11-0.8); Monocytes % 5.6 % (1.7-12.7); Neutrophils # 10.5 10*3/uL (1.4-7.4); Neutrophils % 87.6 % (38.7-73.9); Platelet Count 115 T/CUMM (130-400); Red Blood Count 3.39 MC/CUMM (3.8-5.5); Red Cell Distribution Width 12.8 % (9.3-17.3)
[2017-02-07 02:58] LABS: Albumin 3.6 G/DL (3.4-5.0); Bilirubin,Direct 0.2 MG/DL (0.0-0.20); Bilirubin,Total 0.9 MG/DL (0.2-1.0); Calcium 7.7 MG/DL (8.5-10.1); Magnesium 2.1 MG/DL (1.8-2.4); Osmolality,Calculated 281.5 MOS/KG (273-304); Potassium 4.3 MMOL/L (3.5-5.1); Total Protein 5.5 G/DL (6.4-8.3)
[2017-02-07 03:10] LABS: CKMB % 2.5 %
[2017-02-07 03:18] LABS: Troponin I Only 4.21 NG/ML (0.00-0.045)
[2017-02-07] MEDS: KETOROLAC 30 MG/1 ML VIAL IV SCH ×4 (06:05→23:03)
[2017-02-07] MEDS: CEFUROXIME INJ 1,500 MG in SODIUM CHLORIDE 0.9% 100 ML IV SCH (06:34)
--- NOTE | 2017-02-07 07:21 | EKG Report ---
Stationary ECG Study [facility] Test Date: 02/07/2017 7:19:53 AM Pat Name: EDWARDO SPEAR Department: Room: 104 Gender: M [employer]: MARK : 1960 Requested by: John Owen Order Number: [id number] Reading MD: DARRIAN NAZARIO Intervals [place] Rate: 85 P: 61 [place]: 149 QRS: 23 QRSD: 81 T: 61 QT: 346 QTc: 388 Interpretive Statements SINUS RHYTHM Electronically Signed On 02-07-17 07:50:55 CDT by DARRIAN NAZARIO [email or web address]
[2017-02-07] MEDS ORDERED: MEPERIDINE 50 MG TABLET PO PRN (07:37)
--- NOTE | 2017-02-07 07:37 | Cardiothoracic Progress Note ---
Cardiothoracic Subjective Interval history: Patient is awake alert and extubated. Vital signs been stable through the night and he remains in sinus rhythm this morning with a well-controlled blood pressure. He is breathing comfortably and his blood gases have been satisfactory postextubation. Cardiac output has been in the range of 6 L/min and cardiac enzymes are within normal limits for postoperative day #1. Chest tube drainage is minimal and his chest tubes are discontinued. Urine output has been good and creatinine is within normal limits. I think he can be transferred to telemetry later this morning and overall his progress appears satisfactory. Exam (Progress Note) - Constitutional Vitals: Period Temp Pulse Resp BP Sys/Arvizu Pulse Ox Last 24 Hr 96.1 F-100.1 F 41-99 10-20 85-241/42-110 95-100 Result/EKG - Labs CBC & BMP: 02/07/17 02:08 02/07/17 02:00 Labs: Laboratory Results - last 24 hr 02/05/17 02/06/17 02/06/17 14:01 07:30 07:45 WBC RBC Hgb Hct MCV MCH MCHC RDW Plt Count 85 L D MPV Neut % (Auto) Lymph % (Auto) [place] % (Auto) Eos % (Auto) Baso % (Auto) Neut # (Auto) Lymph # (Auto) [place] # (Auto) Eos # (Auto) Baso # (Auto) Immature Gran % Nucleated RBC % Immature Gran # Nucleated RBCs # Immature Plt Fraction INR PT Patient/Control Mix Circ Anticoag PTT Patient Temperature ABG pH ABG pH at Pt Temp ABG pCO2 ABG pCO2 at Pt Temp ABG pO2 ABG pO2 at Pt Temp ABG HCO3 ABG Total CO2 ABG O2 Saturation ABG Base Excess ABG Sodium VBG pH VBG pCO2 VBG pO2 VBG HCO3 VBG Total CO2 VBG O2 Saturation VBG Base Excess Hemoglobin Hematocrit Potassium Glucose Ionized Calcium FiO2 Sodium Chloride Carbon Dioxide Anion Gap BUN Creatinine GFR Calculation BUN/Creatinine Ratio Calculated Osmolality Calcium Venous Ioniz Calcium Magnesium Total Bilirubin Direct Bilirubin AST ALT Alkaline Phosphatase Total Creatine Kinase CK-MB (CK-2) CK and CKMB Interp Troponin I Total Protein Albumin Globulin Albumin/Globulin Ratio Urine Color Straw Urine Appearance Clear Urine pH 5.0 Ur Specific [place] 1.008 Urine Protein Negative Urine Glucose (UA) Negative Urine Ketones Negative Urine Blood Negative Urine Nitrate Negative Urine Bilirubin Negative Urine Urobilinogen < 2.0 H Urine Leukocytes Negative Urine RBC 1 Urine WBC <1 Ur Culture Indicated? Not indicated Blood Type A POSITIVE Antibody Screen Negative Crossmatch See Detail 02/06/17 02/06/17 02/06/17 09:15 09:45 10:35 WBC RBC Hgb Hct MCV MCH MCHC RDW Plt Count 100 L MPV Neut % (Auto) Lymph % (Auto) [place] % (Auto) Eos % (Auto) Baso % (Auto) Neut # (Auto) Lymph # (Auto) [place] # (Auto) Eos # (Auto) Baso # (Auto) Immature Gran % Nucleated RBC % Immature Gran # Nucleated RBCs # Immature Plt Fraction INR PT Patient/Control Mix Circ Anticoag PTT Patient Temperature 34 34 ABG pH ABG pH at Pt Temp 7.411 7.386 ABG pCO2 ABG pCO2 at Pt Temp 39.8 39.9 ABG pO2 ABG pO2 at Pt Temp 34.0 37.4 ABG HCO3 ABG Total CO2 ABG O2 Saturation ABG Base Excess ABG Sodium 127 L 130 L VBG pH 7.368 7.343 VBG pCO2 46.1 46.1 VBG pO2 41.9 H 46.0 H VBG HCO3 24.8 23.2 L VBG Total CO2 24.4 22.6 VBG O2 Saturation 76.0 79.0 VBG Base Excess 0.9 -1.0 L Hemoglobin 9.6 L D 11.6 L D Hematocrit 29.6 L 35.7 L Potassium 6.6 H* 6.3 H* Glucose 348 H 240 H Ionized Calcium FiO2 80.00 80.00 Sodium Chloride Carbon Dioxide Anion Gap BUN Creatinine GFR Calculation BUN/Creatinine Ratio Calculated Osmolality Calcium Venous Ioniz Calcium 0.91 L 0.99 L Magnesium Total Bilirubin Direct Bilirubin AST ALT Alkaline Phosphatase Total Creatine Kinase CK-MB (CK-2) CK and CKMB Interp Troponin I Total Protein Albumin Globulin Albumin/Globulin Ratio Urine Color Urine Appearance Urine pH Ur Specific [place] Urine Protein Urine Glucose (UA) Urine Ketones Urine Blood Urine Nitrate Urine Bilirubin Urine Urobilinogen Urine Leukocytes Urine RBC Urine WBC Ur Culture Indicated? Blood Type Antibody Screen Crossmatch 02/06/17 02/06/17 02/06/17 10:35 11:28 11:28 WBC 8.2 D RBC 3.36 L D Hgb 10.4 L D Hct 30.4 L MCV 90.5 MCH 31 MCHC 34.2 RDW 12.8 Plt Count 116 L MPV 11.5 Neut % (Auto) 81.4 H Lymph % (Auto) 12.0 L [place] % (Auto) 4.9 Eos % (Auto) 0.6 Baso % (Auto) 0.1 Neut # (Auto) 6.7 Lymph # (Auto) 1.0 L [place] # (Auto) 0.4 Eos # (Auto) 0.1 Baso # (Auto) 0.0 Immature Gran % 1.0 Nucleated RBC % 0.0 Immature Gran # 0.08 Nucleated RBCs # 0.00 Immature Plt Fraction 0.0 INR 1.3 PT Patient/Control Mix 14.1 D Circ Anticoag PTT 34.5 D Patient Temperature 37 ABG pH 7.345 L ABG pH at Pt Temp 7.345 ABG pCO2 44.4 ABG pCO2 at Pt Temp 44.4 ABG pO2 92.9 ABG pO2 at Pt Temp 92.9 ABG HCO3 23.0 ABG Total CO2 21.6 L ABG O2 Saturation 96.8 ABG Base Excess -1.6 ABG Sodium 134 L VBG pH VBG pCO2 VBG pO2 VBG HCO3 VBG Total CO2 VBG O2 Saturation VBG Base Excess Hemoglobin 12.3 L Hematocrit 37.7 L Potassium 3.9 Glucose 173 H Ionized Calcium 1.24 FiO2 Sodium Chloride Carbon Dioxide Anion Gap BUN Creatinine GFR Calculation BUN/Creatinine Ratio Calculated Osmolality Calcium Venous Ioniz Calcium Magnesium Total Bilirubin Direct Bilirubin AST ALT Alkaline Phosphatase Total Creatine Kinase CK-MB (CK-2) CK and CKMB Interp Troponin I Total Protein Albumin Globulin Albumin/Globulin Ratio Urine Color Urine Appearance Urine pH Ur Specific [place] Urine Protein Urine Glucose (UA) Urine Ketones Urine Blood Urine Nitrate Urine Bilirubin Urine Urobilinogen Urine Leukocytes Urine RBC Urine WBC Ur Culture Indicated? Blood Type Antibody Screen Crossmatch 02/06/17 02/06/17 02/06/17 11:55 11:55 11:55 WBC RBC Hgb Hct MCV MCH MCHC RDW Plt Count MPV Neut % (Auto) Lymph % (Auto) [place] % (Auto) Eos % (Auto) Baso % (Auto) Neut # (Auto) Lymph # (Auto) [place] # (Auto) Eos # (Auto) Baso # (Auto) Immature Gran % Nucleated RBC % Immature Gran # Nucleated RBCs # Immature Plt Fraction INR PT Patient/Control Mix Circ Anticoag PTT Patient Temperature ABG pH 7.299 L ABG pH at Pt Temp ABG pCO2 46.9 ABG pCO2 at Pt Temp ABG pO2 186.0 H ABG pO2 at Pt Temp ABG HCO3 21.4 ABG Total CO2 21.1 L ABG O2 Saturation 99.2 ABG Base Excess -3.6 L ABG Sodium VBG pH VBG pCO2 VBG pO2 VBG HCO3 VBG Total CO2 VBG O2 Saturation VBG Base Excess Hemoglobin 10.2 L D Hematocrit 31.4 L Potassium 3.5 3.8 Glucose 133 H 126 H Ionized Calcium FiO2 Sodium 141 Chloride 107 Carbon Dioxide 24 Anion Gap 13.8 BUN 16 Creatinine 1.00 GFR Calculation 103 BUN/Creatinine Ratio 16.00 Calculated Osmolality 283.3 Calcium 8.1 L Venous Ioniz Calcium Magnesium 2.2 Total Bilirubin 0.80 Direct Bilirubin AST 28 ALT 32 Alkaline Phosphatase 38 L Total Creatine Kinase 362 H CK-MB (CK-2) 15.0 H CK and CKMB Interp 4.1 Troponin I 4.210 H Total Protein 4.2 L Albumin 2.6 L Globulin 1.6 L Albumin/Globulin Ratio 1.6 Urine Color Urine Appearance Urine pH Ur Specific [place] Urine Protein Urine Glucose (UA) Urine Ketones Urine Blood Urine Nitrate Urine Bilirubin Urine Urobilinogen Urine Leukocytes Urine RBC Urine WBC Ur Culture Indicated? Blood Type Antibody Screen Crossmatch 02/06/17 02/06/17 02/06/17 13:40 16:14 18:18 WBC RBC Hgb Hct MCV MCH MCHC RDW Plt Count MPV Neut % (Auto) Lymph % (Auto) [place] % (Auto) Eos % (Auto) Baso % (Auto) Neut # (Auto) Lymph # (Auto) [place] # (Auto) Eos # (Auto) Baso # (Auto) Immature Gran % Nucleated RBC % Immature Gran # Nucleated RBCs # Immature Plt Fraction INR PT Patient/Control Mix Circ Anticoag PTT Patient Temperature ABG pH 7.357 7.396 7.474 H ABG pH at Pt Temp ABG pCO2 43.3 38.9 28.9 L ABG pCO2 at Pt Temp ABG pO2 156.0 H 101.1 H 88.3 ABG pO2 at Pt Temp ABG HCO3 23.4 23.3 20.8 ABG Total CO2 22.0 L 24.5 21.6 L ABG O2 Saturation 99.1 96.8 96.6 ABG Base Excess -1.2 -1.3 -1.9 ABG Sodium VBG pH VBG pCO2 VBG pO2 VBG HCO3 VBG Total CO2 VBG O2 Saturation VBG Base Excess Hemoglobin 10.9 L 11.2 L 11.2 L Hematocrit 33.6 L 33.0 L 33.0 L Potassium 4.2 4.3 4.3 Glucose 145 H 190 H 208 H Ionized Calcium FiO2 Sodium Chloride Carbon Dioxide Anion Gap BUN Creatinine GFR Calculation BUN/Creatinine Ratio Calculated Osmolality Calcium Venous Ioniz Calcium Magnesium Total Bilirubin Direct Bilirubin AST ALT Alkaline Phosphatase Total Creatine Kinase CK-MB (CK-2) CK and CKMB Interp Troponin I Total Protein Albumin Globulin Albumin/Globulin Ratio Urine Color Urine Appearance Urine pH Ur Specific [place] Urine Protein Urine Glucose (UA) Urine Ketones Urine Blood Urine Nitrate Urine Bilirubin Urine Urobilinogen Urine Leukocytes Urine RBC Urine WBC Ur Culture Indicated? Blood Type Antibody Screen Crossmatch 02/06/17 02/06/17 02/06/17 20:00 20:00 20:45 WBC RBC Hgb Hct MCV MCH MCHC RDW Plt Count MPV Neut % (Auto) Lymph % (Auto) [place] % (Auto) Eos % (Auto) Baso % (Auto) Neut # (Auto) Lymph # (Auto) [place] # (Auto) Eos # (Auto) Baso # (Auto) Immature Gran % Nucleated RBC % Immature Gran # Nucleated RBCs # Immature Plt Fraction INR PT Patient/Control Mix Circ Anticoag PTT Patient Temperature ABG pH 7.486 H 7.494 H ABG pH at Pt Temp ABG pCO2 26.4 L 26.0 L ABG pCO2 at Pt Temp ABG pO2 78.6 L 98.1 H ABG pO2 at Pt Temp ABG HCO3 19.5 L 19.5 L ABG Total CO2 20.3 L 20.3 L ABG O2 Saturation 95.8 97.0 ABG Base Excess -2.8 L -2.6 L ABG Sodium VBG pH VBG pCO2 VBG pO2 VBG HCO3 VBG Total CO2 VBG O2 Saturation VBG Base Excess Hemoglobin 10.7 L 10.6 L Hematocrit 31.0 L 31.0 L Potassium 4.1 4.4 Glucose 208 H 202 H Ionized Calcium FiO2 Sodium Chloride Carbon Dioxide Anion Gap BUN Creatinine GFR Calculation BUN/Creatinine Ratio Calculated Osmolality Calcium Venous Ioniz Calcium Magnesium Total Bilirubin Direct Bilirubin AST ALT Alkaline Phosphatase Total Creatine Kinase 555 H D CK-MB (CK-2) 19.4 H CK and CKMB Interp 3.5 Troponin I 3.890 H Total Protein Albumin Globulin Albumin/Globulin Ratio Urine Color Urine Appearance Urine pH Ur Specific [place] Urine Protein Urine Glucose (UA) Urine Ketones Urine Blood Urine Nitrate Urine Bilirubin Urine Urobilinogen Urine Leukocytes Urine RBC Urine WBC Ur Culture Indicated? Blood Type Antibody Screen Crossmatch 02/06/17 02/06/17 02/07/17 22:12 23:05 02:00 WBC RBC Hgb Hct MCV MCH MCHC RDW Plt Count MPV Neut % (Auto) Lymph % (Auto) [place] % (Auto) Eos % (Auto) Baso % (Auto) Neut # (Auto) Lymph # (Auto) [place] # (Auto) Eos # (Auto) Baso # (Auto) Immature Gran % Nucleated RBC % Immature Gran # Nucleated RBCs # Immature Plt Fraction INR PT Patient/Control Mix Circ Anticoag PTT Patient Temperature ABG pH 7.480 H 7.411 ABG pH at Pt Temp ABG pCO2 27.8 L 33.4 L ABG pCO2 at Pt Temp ABG pO2 80.7 70.5 L ABG pO2 at Pt Temp ABG HCO3 22.9 22.1 ABG Total CO2 18.7 L 19.2 L ABG O2 Saturation 97.0 94.1 L ABG Base Excess -1.8 -2.7 L ABG Sodium VBG pH VBG pCO2 VBG pO2 VBG HCO3 VBG Total CO2 VBG O2 Saturation VBG Base Excess Hemoglobin 10.4 L 10.3 L Hematocrit 32.0 L 32.0 L Potassium 3.8 4.4 4.3 Glucose 208 H 198 H 167 H Ionized Calcium FiO2 Sodium 139 Chloride 107 Carbon Dioxide 24 Anion Gap 12.3 BUN 16 Creatinine 1.00 GFR Calculation 103 BUN/Creatinine Ratio 16.00 Calculated Osmolality 281.5 Calcium 7.7 L Venous Ioniz Calcium Magnesium 2.1 Total Bilirubin 0.90 Direct Bilirubin 0.20 AST 41 H ALT 40 Alkaline Phosphatase 39 L Total Creatine Kinase CK-MB (CK-2) CK and CKMB Interp Troponin I Total Protein 5.5 L Albumin 3.6 Globulin 1.9 L Albumin/Globulin Ratio 1.8 Urine Color Urine Appearance Urine pH Ur Specific [place] Urine Protein Urine Glucose (UA) Urine Ketones Urine Blood Urine Nitrate Urine Bilirubin Urine Urobilinogen Urine Leukocytes Urine RBC Urine WBC Ur Culture Indicated? Blood Type Antibody Screen Crossmatch 02/07/17 02/07/17 02/07/17 02:00 02:08 02:08 WBC 12.0 D RBC 3.39 L Hgb 10.4 L Hct 30.1 L MCV 88.8 MCH 31 MCHC 34.6 RDW 12.8 Plt Count 115 L MPV 12.2 H Neut % (Auto) 87.6 H Lymph % (Auto) 6.2 L [place] % (Auto) 5.6 Eos % (Auto) 0.0 Baso % (Auto) 0.0 Neut # (Auto) 10.5 H Lymph # (Auto) 0.8 L [place] # (Auto) 0.7 Eos # (Auto) 0.0 Baso # (Auto) 0.0 Immature Gran % 0.6 Nucleated RBC % 0.0 Immature Gran # 0.07 Nucleated RBCs # 0.00 Immature Plt Fraction 0.0 INR PT Patient/Control Mix Circ Anticoag PTT Patient Temperature ABG pH 7.400 ABG pH at Pt Temp ABG pCO2 36.2 ABG pCO2 at Pt Temp ABG pO2 80.9 ABG pO2 at Pt Temp ABG HCO3 22.7 ABG Total CO2 20.3 L ABG O2 Saturation 95.9 ABG Base Excess -2.0 ABG Sodium VBG pH VBG pCO2 VBG pO2 VBG HCO3 VBG Total CO2 VBG O2 Saturation VBG Base Excess Hemoglobin 10.4 L Hematocrit 32.3 L Potassium 4.2 Glucose 184 H Ionized Calcium FiO2 Sodium Chloride Carbon Dioxide Anion Gap BUN Creatinine GFR Calculation BUN/Creatinine Ratio Calculated Osmolality Calcium Venous Ioniz Calcium Magnesium Total Bilirubin Direct Bilirubin AST ALT Alkaline Phosphatase Total Creatine Kinase 681 H D CK-MB (CK-2) 17.2 H CK and CKMB Interp 2.5 Troponin I 4.210 H Total Protein Albumin Globulin Albumin/Globulin Ratio Urine Color Urine Appearance Urine pH Ur Specific [place] Urine Protein Urine Glucose (UA) Urine Ketones Urine Blood Urine Nitrate Urine Bilirubin Urine Urobilinogen Urine Leukocytes Urine RBC Urine WBC Ur Culture Indicated? Blood Type Antibody Screen Crossmatch Quality Measures - VTE Contraindication to Pharmacological VTE Prophylaxis: High Risk of Bleeding
[2017-02-07] MEDS ORDERED: CLORAZEPATE 3.75 MG TABLET PO PRN (07:39)
[2017-02-07] MEDS ORDERED: RAMIPRIL 5 MG CAPSULE PO ONE (07:39)
[2017-02-07] MEDS: OMEGA 3 ACID ETHYL ESTERS 1 GM CAPSULE PO SCH ×2 (08:18→21:41)
[2017-02-07] MEDS: CARVEDILOL 12.5 MG TABLET PO SCH ×2 (08:18→21:42)
[2017-02-07] MEDS: CHLORHEXIDINE 0.12% ORAL RINSE 60 ML BOTTLE SWISH/SPIT SCH ×3 (08:21→21:42)
--- NOTE | 2017-02-07 08:38 | XRay Report ---
XR chest 1V portable Indication: Chest tube removal, pneumothorax Comparison: 06 February 2017 Findings: The heart and mediastinum are stable in size and configuration. The lines and tubes have been removed except for the right internal jugular catheter. The pulmonary vascularity is normal in caliber. There is improved the left lower lung density. No other lung infiltrates, effusions, pneumothorax or other abnormality is demonstrated. Impression: Removal of support structures as described above. Resolution of left lower lung density. PROCEDURE INTERPRETED AT [facility] DEPARTMENT OF RADIOLOG[facility] Final Report Signed by: Dr. Js Carbajal
[2017-02-07] MEDS ORDERED: ASPIRIN EC 81 MG TABLET PO SCH (09:00)
[2017-02-07] MEDS ORDERED: MAGNESIUM HYDROXIDE SUSP 30 ML UDCUP PO PRN (10:12)
[2017-02-07] MEDS ORDERED: POTASSIUM CHLORIDE 20 MEQ TABLET PO PRN (10:12)
[2017-02-07] MEDS ORDERED: ONDANSETRON 4 MG/2 ML VIAL IV PRN (10:12)
[2017-02-07] MEDS ORDERED: MAGNESIUM SULF RIDER 2 GM in PREMIX 1 EACH IV PRN (10:12)
[2017-02-07] MEDS ORDERED: ZALEPLON 5 MG CAPSULE PO PRN (10:12)
[2017-02-07] MEDS ORDERED: GLUCAGON 1 MG VIAL IM PRN ×2 (10:12)
[2017-02-07] MEDS ORDERED: DEXTROSE 50% 25 GM/50 ML SYRINGE IV PRN (10:12)
[2017-02-07] MEDS ORDERED: ALUMINUM/MAGNES/SIMETH MAX STR 30 ML UDCUP PO PRN (10:12)
[2017-02-07] MEDS ORDERED: ACETAMINOPHEN 325 MG TABLET PO PRN (10:12)
[2017-02-07] MEDS ORDERED: DEXTROSE 50% 25 GM/50 ML VIAL IV PRN (10:12)
[2017-02-07] MEDS ORDERED: MAGNESIUM SULF RIDER 4 GM in PREMIX 1 EACH IV PRN (10:12)
[2017-02-07] MEDS ORDERED: SODIUM CHLOR 0.45% KCL 20 MEQ 20 MEQ/1,000 ML BAG IV SCH (10:12)
[2017-02-07] MEDS: PANTOPRAZOLE 40 MG TABLET PO SCH (10:36)
[2017-02-07] MEDS: DOCUSATE SODIUM 100 MG CAPSULE PO SCH (10:36)
[2017-02-07] MEDS: FERROUS SULFATE 325 MG TABLET PO SCH (10:36)
--- NOTE | 2017-02-07 13:38 | Anesthesia Post-Op ---
Anesthesia Post OP - Post Ansesthetic Evaluation Patient seen in post op: Yes Resp: within normal limits CV: within normal limits Mental: within normal limits Temp: within normal limits [id number]: within normal limits Nausea and Vomiting: within normal limits Pain: within normal limits
--- NOTE | 2017-02-07 16:53 | Sleep Medicine Consult ---
Assessment and Plan (1) Unspecified sleep apnea Status: Acute Assessment and plan: This patient does have a history of snoring and significant comorbidities that can be associated with sleep apnea. Even though he lacks a history of witnessed apneas or daytime fatigue or sleepiness of any significant degree, with his medical comorbidities, I do think he needs sleep evaluation. I recommended this but he is not interested in pursuing this at this time. He stated that he had other issues that were more problematic from a health standpoint that he wanted to address before dealing with his sleep. I recommended that all follow-up with Dr. Florse, his waste examiner, that if he desires further evaluation, I recommended that he be set up for follow-up. I did make it clear that with his health issues, this puts him at greater risk for more problems from a cardiac standpoint and general medicine standpoint with his hypertension and diabetes if his sleep apnea is not treated. Current Visit: Yes (2) Coronary artery disease Status: Acute Assessment and plan: I reviewed the Prakash data from Lancet 2004 with the patient to their understanding. This study proved significant reduction in the risk of fatal and nonfatal cardiac events in patients with severe obstructive sleep apnea compliant with CPAP, in comparison with those noncompliant with CPAP for severe sleep apnea. Current Visit: Yes (3) Type 2 diabetes mellitus Status: Acute Assessment and plan: The prevalence rate for obstructive sleep apnea in patients with type 2 diabetes can be as high as 86%. Those patients with moderate to severe obstructive sleep apnea are at a greater risk for diabetic nephropathy and neuropathy. Compliance with CPAP therapy for these patients can lead to improvement in glycemic control and improvement in insulin sensitivity. Current Visit: Yes (4) Essential hypertension Status: Acute Assessment and plan: The prevalence rate for obstructive sleep apnea patients with hypertension is 35 %. That rate can be as high as 80% in patients who require 4 or more medications for blood pressure control. Current Visit: Yes History of Present Illness Chief complaint: Sleep apnea History of present illness: Mr. Pederson is a 56 year old male status post triple bypass surgery after undergoing screening treadmill evaluation that was abnormal. He has done well with surgery and screened is high risk for sleep apnea. He does snore loudly and has significant issues with comorbidities medically associated with sleep apnea. These include hypertension, type 2 diabetes, and metabolic syndrome. His is never heard him stop breathing during his sleep. He only urinates once a night and denies significant problems with daytime sleepiness other than when he is adjusting to a shift change with his work. He has no other family history of sleep apnea. Home Medications Medication Instructions Recorded Confirmed Type Aspirin [Ecotrin] 81 mg PO BEDTIME 02/01/17 02/05/17 History Atorvastatin [Lipitor] 40 mg PO BEDTIME 02/01/17 02/05/17 History Carvedilol 12.5 mg PO BID 02/01/17 02/05/17 History [place]-3 Fatty Acids [Fish Oil 1,000 mg PO BID 02/01/17 02/05/17 History Concentrate] Ramipril [Altace] 10 mg PO DAILY 02/01/17 02/05/17 History metFORMIN [Glucophage] 500 mg PO BID 02/01/17 02/05/17 History Allergies Allergy/AdvReac Type Severity Reaction Status Date / Time clopidogrel [From Plavix] Allergy RASH Verified 02/02/17 06:12 Review of systems: Otherwise unremarkable from a sleep medicine standpoint. Exam (Pulmonay) H&P - Constitutional Vitals: Period Temp Pulse Resp BP Sys/Arvizu Pulse Ox Last 24 Hr 97.9 F-100.1 F 78-99 10-20 104-158/47-77 94-99 Exam: He is alert and responsive in no acute distress. Pupils equal round reactive to light and accommodation. Extraocular movements intact. Oropharynx with a class III Mallampati exam with a heavy palate. Neck is large and supple without adenopathy or thyromegaly. No supraclavicular adenopathy is noted. Chest with symmetrical breath sounds without focal wheeze, rhonchi, or rales. Cardiac exam reveals a regular rhythm without murmur or gallop. Abdomen soft nontender without palpable hepatosplenomegaly or mass. Extremities without significant edema other than that left leg with trace pitting edema. Neurologically, he is grossly intact. He moves all extremities with good strength. Medical,Surgical,& Family Hx - Medical History Cardio: History of: CAD, Hypertension Neurology: No history of: Seizures Endocrine: History of: Diabetes Mellitus (IDDM), Dyslipidemia Gastrointestinal: History of: Diverticulitis/ Diverticulosis - Surgical History Cardiac Surgeries: Sugical HX of: Cardiac Catheterization Orthopedic Surgeries: Surgical HX of;: Orthopedic Surgery (left and right rotator cuff) - Family History Family History: Reports;: Family Cancer (mother and father), Family Hypertension (brother) Denies;: Family Diabetes, Family Heart Disease, Family Hematology, Family Psychiatric Problems, Family Stroke - Social History Smoking Status: Never smoker Frequency of Alcohol Use: None Type of Drug Use: None Results - Labs CBC & BMP: 02/07/17 02:08 02/07/17 02:00 Lab Results: I have reviewed the past 24 hour labs Quality Measures - VTE Contraindication to Pharmacological VTE Prophylaxis: High Risk of Bleeding Specialty Discharge - Follow Up or Referrals
[2017-02-07] MEDS: ATORVASTATIN 40 MG TABLET PO SCH (21:42)
[2017-02-07] MEDS: ASPIRIN EC 81 MG TABLET PO SCH (21:42)
[2017-02-08] MEDS: INSULIN REGULAR 100 UNIT/ML SUBCUT SCH ×6 (04:34→21:05)
[2017-02-08 05:15] LABS: Basophils % 0.1 % (0.0-0.8); Eosinophils % 0.1 % (0.00-10.9); Hematocrit 27.4 VOL% (42.0-52.0); Hemoglobin 9.5 GM/DL (14.0-18.0); Immature Granulocytes % 0.8 %; Immature Granulocytes Absolute 0.12 #; Lymphocytes # 1.7 10*3/uL (1.4-4.0); Lymphocytes % 11.3 % (21.2-54.2); Mean Corpuscular HGB Conc 34.7 GM/DL (32-36); Mean Corpuscular Hemoglobin 31 PG (27-34); Mean Corpuscular Volume 89.5 FL (87-102); Mean Platelet Volume 12.1 FL (9.6-12.0); Monocytes # 1.5 10*3/uL (0.11-0.8); Monocytes % 10.4 % (1.7-12.7); Neutrophils # 11.4 10*3/uL (1.4-7.4); Neutrophils % 77.3 % (38.7-73.9); Platelet Count 107 T/CUMM (130-400); Red Blood Count 3.06 MC/CUMM (3.8-5.5); Red Cell Distribution Width 13.4 % (9.3-17.3); White Blood Count 14.7 T/CUMM (4-12)
[2017-02-08] MEDS: KETOROLAC 30 MG/1 ML VIAL IV SCH ×4 (05:18→22:30)
[2017-02-08 05:53] LABS: Alanine Aminotransferase 34 U/L (16-61); Albumin 3.3 G/DL (3.4-5.0); Alkaline Phosphatase 38 U/L (45-117); Aspartate Amino Transferase 30 U/L (0-37); Bilirubin,Indirect 0.8 MG/DL (0.0-1.0); Blood Urea Nitrogen 20 MG/DL (7-18); Calcium 7.8 MG/DL (8.5-10.1); Glucose 125 MG/DL (74-106); Magnesium 2.8 MG/DL (1.8-2.4); Osmolality,Calculated 284.3 MOS/KG (273-304); Potassium 4.4 MMOL/L (3.5-5.1); Sodium 141 MMOL/L (136-145); Total Protein 5.5 G/DL (6.4-8.3)
[2017-02-08] MEDS ORDERED: FUROSEMIDE 40 MG/4 ML VIAL IV ONE (06:00)
--- NOTE | 2017-02-08 06:27 | Cardiothoracic Progress Note ---
Cardiothoracic Subjective Interval history: Patient looks and feels okay. He does have some chest wall soreness but this seems reasonably well controlled. Vital signs have been stable and is breathing comfortably. Laboratory work and chest x-ray look essentially okay for postoperative day #2. He is gradually increasing his activity according to routine postoperative protocol. Overall his progress appears satisfactory. Exam (Progress Note) - Constitutional Vitals: Period Temp Pulse Resp BP Sys/Arvizu Pulse Ox Last 24 Hr 97.9 F-99.6 F 78-95 10-20 104-158/60-77 94-98 Result/EKG - Labs CBC & BMP: 02/08/17 04:08 02/08/17 04:08 Labs: Laboratory Results - last 24 hr 02/05/17 02/07/17 02/07/17 14:01 15:51 20:12 WBC RBC Hgb Hct MCV MCH MCHC RDW Plt Count MPV Neut % (Auto) Lymph % (Auto) [place] % (Auto) Eos % (Auto) Baso % (Auto) Neut # (Auto) Lymph # (Auto) [place] # (Auto) Eos # (Auto) Baso # (Auto) Immature Gran % Nucleated RBC % Immature Gran # Nucleated RBCs # Immature Plt Fraction Sodium Potassium Chloride Carbon Dioxide Anion Gap BUN Creatinine GFR Calculation BUN/Creatinine Ratio Glucose POC Glucose 181 H 227 H Calculated Osmolality Calcium Magnesium Total Bilirubin Direct Bilirubin Indirect Bilirubin AST ALT Alkaline Phosphatase Total Creatine Kinase CK-MB (CK-2) Troponin I Total Protein Albumin Globulin Albumin/Globulin Ratio Crossmatch See Detail 02/08/17 02/08/17 02/08/17 04:08 04:08 04:21 WBC 14.7 H RBC 3.06 L Hgb 9.5 L Hct 27.4 L MCV 89.5 MCH 31 MCHC 34.7 RDW 13.4 Plt Count 107 L MPV 12.1 H Neut % (Auto) 77.3 H Lymph % (Auto) 11.3 L [place] % (Auto) 10.4 Eos % (Auto) 0.1 Baso % (Auto) 0.1 Neut # (Auto) 11.4 H Lymph # (Auto) 1.7 [place] # (Auto) 1.5 H Eos # (Auto) 0.0 Baso # (Auto) 0.0 Immature Gran % 0.8 Nucleated RBC % 0.0 Immature Gran # 0.12 Nucleated RBCs # 0.00 Immature Plt Fraction 0.0 Sodium 141 Potassium 4.4 Chloride 107 Carbon Dioxide 30 Anion Gap 8.4 BUN 20 H Creatinine 0.90 GFR Calculation 118 BUN/Creatinine Ratio 22.00 H Glucose 125 H POC Glucose 141 H Calculated Osmolality 284.3 Calcium 7.8 L Magnesium 2.8 H Total Bilirubin 1.00 Direct Bilirubin 0.20 Indirect Bilirubin 0.8 AST 30 ALT 34 Alkaline Phosphatase 38 L Total Creatine Kinase 722 H CK-MB (CK-2) 3.5 D Troponin I 1.830 H D Total Protein 5.5 L Albumin 3.3 L Globulin 2.2 L Albumin/Globulin Ratio 1.5 Crossmatch Quality Measures - VTE Contraindication to Pharmacological VTE Prophylaxis: High Risk of Bleeding Specialty Discharge - Follow Up or Referrals
--- NOTE | 2017-02-08 08:46 | XRay Report ---
XR chest 1V portable Indication: Shortness of breath Comparison: 07 February 2017 Findings: The heart and mediastinum are stable in size and configuration with cardiac surgery changes. The right internal jugular catheter is unchanged in position. The pulmonary vascularity is normal in caliber. No lung infiltrates, effusions, pneumothorax or other abnormality is demonstrated. Impression: No acute findings or significant change PROCEDURE INTERPRETED AT [facility] DEPARTMENT OF RADIOLOGY Final Report Signed by: Dr. Js Carbajal
[2017-02-08] MEDS: CARVEDILOL 12.5 MG TABLET PO SCH ×2 (09:27→20:52)
[2017-02-08] MEDS: DOCUSATE SODIUM 100 MG CAPSULE PO SCH (09:27)
[2017-02-08] MEDS: PANTOPRAZOLE 40 MG TABLET PO SCH (09:27)
[2017-02-08] MEDS: OMEGA 3 ACID ETHYL ESTERS 1 GM CAPSULE PO SCH ×2 (09:27→20:52)
[2017-02-08] MEDS: FERROUS SULFATE 325 MG TABLET PO SCH (09:27)
[2017-02-08] MEDS: CHLORHEXIDINE 0.12% ORAL RINSE 60 ML BOTTLE SWISH/SPIT SCH ×2 (09:27→20:52)
[2017-02-08] MEDS: ATORVASTATIN 40 MG TABLET PO SCH (20:52)
[2017-02-08] MEDS: ASPIRIN EC 81 MG TABLET PO SCH (20:52)
[2017-02-09] MEDS: INSULIN REGULAR 100 UNIT/ML SUBCUT SCH ×5 (01:45→20:32)
[2017-02-09] MEDS: KETOROLAC 30 MG/1 ML VIAL IV SCH (04:35)
[2017-02-09 05:50] LABS: Basophils % 0.2 % (0.0-0.8); Eosinophils # 0.1 10*3/uL (0.0-0.87); Eosinophils % 0.6 % (0.00-10.9); Hematocrit 28.6 VOL% (42.0-52.0); Hemoglobin 9.6 GM/DL (14.0-18.0); Immature Granulocytes % 0.7 %; Immature Granulocytes Absolute 0.08 #; Lymphocytes # 2.5 10*3/uL (1.4-4.0); Lymphocytes % 21.5 % (21.2-54.2); Mean Corpuscular HGB Conc 33.6 GM/DL (32-36); Mean Corpuscular Hemoglobin 31 PG (27-34); Mean Corpuscular Volume 90.8 FL (87-102); Mean Platelet Volume 11.9 FL (9.6-12.0); Monocytes % 8.7 % (1.7-12.7); Neutrophils # 7.8 10*3/uL (1.4-7.4); Neutrophils % 68.3 % (38.7-73.9); Platelet Count 122 T/CUMM (130-400); Red Blood Count 3.15 MC/CUMM (3.8-5.5); Red Cell Distribution Width 13.4 % (9.3-17.3); White Blood Count 11.5 T/CUMM (4-12)
[2017-02-09 06:32] LABS: Alanine Aminotransferase 30 U/L (16-61); Albumin 3.1 G/DL (3.4-5.0); Alkaline Phosphatase 45 U/L (45-117); Aspartate Amino Transferase 20 U/L (0-37); Bilirubin,Indirect 1.3 MG/DL (0.0-1.0); Blood Urea Nitrogen 17 MG/DL (7-18); Calcium 8.1 MG/DL (8.5-10.1); Glucose 109 MG/DL (74-106); Osmolality,Calculated 281.4 MOS/KG (273-304); Sodium 140 MMOL/L (136-145); Total Protein 5.4 G/DL (6.4-8.3)
[2017-02-09 06:34] LABS: Troponin I Only 0.888 NG/ML (0.00-0.045)
--- NOTE | 2017-02-09 08:08 | XRay Report ---
Portable chest Date: 02/09/2017 Clinical history: Shortness of breath Comparison: 02/08/2017 Technique: Portable AP sitting chest Findings: The heart is minimally enlarged with prior median sternotomy. Stable right IJ CVP line. No significant change in the appearance of the lungs, mediastinum, or osseous structures. Impression: No significant change in the appearance of the chest in patient with recent median sternotomy. PROCEDURE INTERPRETED AT [facility] DEPARTMENT OF RADIOLOGY Final Report Signed by: Dr. Suzy Aquino
--- NOTE | 2017-02-09 08:09 | Cardiothoracic Progress Note ---
Cardiothoracic Subjective Interval history: No real problems. Patient seems to be recovering nicely. Vital signs are stable and is breathing comfortably. We will gradually increase activities according to routine postoperative protocol. Exam (Progress Note) - Constitutional Vitals: Period Temp Pulse Resp BP Sys/Arvizu Pulse Ox Last 24 Hr 97.9 F-99.2 F 83-88 18-20 112-130/61-75 93-96 Result/EKG - Labs CBC & BMP: 02/09/17 04:53 02/09/17 04:53 Labs: Laboratory Results - last 24 hr 02/07/17 02/07/17 02/07/17 02:13 05:57 11:35 WBC RBC Hgb Hct MCV MCH MCHC RDW Plt Count MPV Neut % (Auto) Lymph % (Auto) [place] % (Auto) Eos % (Auto) Baso % (Auto) Neut # (Auto) Lymph # (Auto) [place] # (Auto) Eos # (Auto) Baso # (Auto) Immature Gran % Nucleated RBC % Immature Gran # Nucleated RBCs # Immature Plt Fraction Sodium Potassium Chloride Carbon Dioxide Anion Gap BUN Creatinine GFR Calculation BUN/Creatinine Ratio Glucose POC Glucose 189 H 180 H 172 H Calculated Osmolality Calcium Magnesium Total Bilirubin Direct Bilirubin Indirect Bilirubin AST ALT Alkaline Phosphatase Total Creatine Kinase CK-MB (CK-2) Troponin I Total Protein Albumin Globulin Albumin/Globulin Ratio 02/08/17 02/08/17 02/08/17 11:23 16:47 20:07 WBC RBC Hgb Hct MCV MCH MCHC RDW Plt Count MPV Neut % (Auto) Lymph % (Auto) [place] % (Auto) Eos % (Auto) Baso % (Auto) Neut # (Auto) Lymph # (Auto) [place] # (Auto) Eos # (Auto) Baso # (Auto) Immature Gran % Nucleated RBC % Immature Gran # Nucleated RBCs # Immature Plt Fraction Sodium Potassium Chloride Carbon Dioxide Anion Gap BUN Creatinine GFR Calculation BUN/Creatinine Ratio Glucose POC Glucose 163 H 144 H 136 H Calculated Osmolality Calcium Magnesium Total Bilirubin Direct Bilirubin Indirect Bilirubin AST ALT Alkaline Phosphatase Total Creatine Kinase CK-MB (CK-2) Troponin I Total Protein Albumin Globulin Albumin/Globulin Ratio 02/08/17 02/09/17 02/09/17 23:31 04:53 04:53 WBC 11.5 RBC 3.15 L Hgb 9.6 L Hct 28.6 L MCV 90.8 MCH 31 MCHC 33.6 RDW 13.4 Plt Count 122 L MPV 11.9 Neut % (Auto) 68.3 Lymph % (Auto) 21.5 [place] % (Auto) 8.7 Eos % (Auto) 0.6 Baso % (Auto) 0.2 Neut # (Auto) 7.8 H Lymph # (Auto) 2.5 [place] # (Auto) 1.0 H Eos # (Auto) 0.1 Baso # (Auto) 0.0 Immature Gran % 0.7 Nucleated RBC % 0.0 Immature Gran # 0.08 Nucleated RBCs # 0.00 Immature Plt Fraction 0.0 Sodium 140 Potassium 4.0 Chloride 105 Carbon Dioxide 28 Anion Gap 11.0 BUN 17 Creatinine 0.80 GFR Calculation 123 BUN/Creatinine Ratio 21.00 H Glucose 109 H POC Glucose 126 H Calculated Osmolality 281.4 Calcium 8.1 L Magnesium 3.0 H Total Bilirubin 1.50 H Direct Bilirubin 0.20 Indirect Bilirubin 1.3 H AST 20 ALT 30 Alkaline Phosphatase 45 Total Creatine Kinase 407 H D CK-MB (CK-2) 1.2 Troponin I 0.888 H D Total Protein 5.4 L Albumin 3.1 L Globulin 2.3 Albumin/Globulin Ratio 1.3 02/09/17 07:13 WBC RBC Hgb Hct MCV MCH MCHC RDW Plt Count MPV Neut % (Auto) Lymph % (Auto) [place] % (Auto) Eos % (Auto) Baso % (Auto) Neut # (Auto) Lymph # (Auto) [place] # (Auto) Eos # (Auto) Baso # (Auto) Immature Gran % Nucleated RBC % Immature Gran # Nucleated RBCs # Immature Plt Fraction Sodium Potassium Chloride Carbon Dioxide Anion Gap BUN Creatinine GFR Calculation BUN/Creatinine Ratio Glucose POC Glucose 133 H Calculated Osmolality Calcium Magnesium Total Bilirubin Direct Bilirubin Indirect Bilirubin AST ALT Alkaline Phosphatase Total Creatine Kinase CK-MB (CK-2) Troponin I Total Protein Albumin Globulin Albumin/Globulin Ratio Quality Measures - VTE Contraindication to Pharmacological VTE Prophylaxis: High Risk of Bleeding Specialty Discharge - Follow Up or Referrals
[2017-02-09] MEDS: OMEGA 3 ACID ETHYL ESTERS 1 GM CAPSULE PO SCH ×2 (08:32→20:32)
[2017-02-09] MEDS: FERROUS SULFATE 325 MG TABLET PO SCH (08:32)
[2017-02-09] MEDS: CARVEDILOL 12.5 MG TABLET PO SCH ×2 (08:32→20:31)
[2017-02-09] MEDS: CHLORHEXIDINE 0.12% ORAL RINSE 60 ML BOTTLE SWISH/SPIT SCH ×2 (08:32→20:34)
[2017-02-09] MEDS: PANTOPRAZOLE 40 MG TABLET PO SCH (08:32)
[2017-02-09] MEDS: DOCUSATE SODIUM 100 MG CAPSULE PO SCH (08:32)
[2017-02-09] MEDS ORDERED: KETOROLAC 30 MG/1 ML VIAL IV PRN (10:07)
[2017-02-09] MEDS: metFORMIN 500 MG TABLET PO SCH (16:54)
[2017-02-09] MEDS: ATORVASTATIN 40 MG TABLET PO SCH (20:32)
[2017-02-09] MEDS: ASPIRIN EC 81 MG TABLET PO SCH (20:32)
[2017-02-10] MEDS: INSULIN REGULAR 100 UNIT/ML SUBCUT SCH ×4 (08:27→21:09)
[2017-02-10] MEDS: FERROUS SULFATE 325 MG TABLET PO SCH (08:48)
[2017-02-10] MEDS: CHLORHEXIDINE 0.12% ORAL RINSE 60 ML BOTTLE SWISH/SPIT SCH ×2 (08:49→21:09)
[2017-02-10] MEDS: DOCUSATE SODIUM 100 MG CAPSULE PO SCH (08:49)
[2017-02-10] MEDS: PANTOPRAZOLE 40 MG TABLET PO SCH (08:49)
[2017-02-10] MEDS: metFORMIN 500 MG TABLET PO SCH ×2 (08:49→16:21)
[2017-02-10] MEDS: OMEGA 3 ACID ETHYL ESTERS 1 GM CAPSULE PO SCH ×2 (08:49→21:08)
[2017-02-10] MEDS: CARVEDILOL 12.5 MG TABLET PO SCH ×2 (08:49→21:08)
--- NOTE | 2017-02-10 09:05 | Cardiothoracic Progress Note ---
Cardiothoracic Subjective Interval history: Patient looks and feels okay. Vital signs have been stable and is breathing comfortably. He is ambulating without assistance. Overall his progress appears satisfactory. Think he may be ready for discharge in the morning. Exam (Progress Note) - Constitutional Vitals: Period Temp Pulse Resp BP Sys/Arvizu Pulse Ox Last 24 Hr 97.7 F-98.2 F 83-93 16-20 117-157/64-80 96-100 Result/EKG - Labs CBC & BMP: 02/09/17 04:53 02/09/17 04:53 Labs: Laboratory Results - last 24 hr 02/09/17 02/09/17 02/09/17 11:29 15:15 20:21 POC Glucose 195 H 174 H 132 H 02/10/17 08:10 POC Glucose 128 H Quality Measures - VTE Contraindication to Pharmacological VTE Prophylaxis: High Risk of Bleeding Specialty Discharge - Follow Up or Referrals
[2017-02-10] MEDS: ASPIRIN EC 81 MG TABLET PO SCH (21:08)
[2017-02-10] MEDS: ATORVASTATIN 40 MG TABLET PO SCH (21:08)
[2017-02-11 05:24] LABS: Basophils % 0.2 % (0.0-0.8); Eosinophils # 0.2 10*3/uL (0.0-0.87); Eosinophils % 2.1 % (0.00-10.9); Hematocrit 31.2 VOL% (42.0-52.0); Hemoglobin 10.5 GM/DL (14.0-18.0); Immature Granulocytes % 1.2 %; Lymphocytes # 2.3 10*3/uL (1.4-4.0); Lymphocytes % 26.4 % (21.2-54.2); Mean Corpuscular HGB Conc 33.7 GM/DL (32-36); Mean Corpuscular Hemoglobin 30 PG (27-34); Mean Corpuscular Volume 90.2 FL (87-102); Mean Platelet Volume 11.5 FL (9.6-12.0); Monocytes # 0.7 10*3/uL (0.11-0.8); Monocytes % 8.3 % (1.7-12.7); Neutrophils # 5.3 10*3/uL (1.4-7.4); Neutrophils % 61.8 % (38.7-73.9); Platelet Count 184 T/CUMM (130-400); Red Blood Count 3.46 MC/CUMM (3.8-5.5); Red Cell Distribution Width 13.2 % (9.3-17.3); White Blood Count 8.6 T/CUMM (4-12)
[2017-02-11 06:11] LABS: Alanine Aminotransferase 58 U/L (16-61); Albumin 2.9 G/DL (3.4-5.0); Alkaline Phosphatase 63 U/L (45-117); Aspartate Amino Transferase 23 U/L (0-37); Bilirubin,Indirect 0.6 MG/DL (0.0-1.0); Blood Urea Nitrogen 15 MG/DL (7-18); Glucose 116 MG/DL (74-106); Magnesium 2.5 MG/DL (1.8-2.4); Osmolality,Calculated 280.4 MOS/KG (273-304); Potassium 4.1 MMOL/L (3.5-5.1); Sodium 140 MMOL/L (136-145); Total Protein 5.8 G/DL (6.4-8.3); Troponin I Only 0.199 NG/ML (0.00-0.045)
--- NOTE | 2017-02-11 08:19 | Discharge Summary ---
Hospital Course - Hospital Course Hospital Course: History of present illness: Patient is a 56-year-old man who was seen by Dr. Flores as part of an employment physical which demonstrated a positive exercise test. Patient was advised to have cardiac catheterization which demonstrated triple-vessel coronary disease and the patient was referred for bypass surgery. His past medical history is significant for the presence of diabetes mellitus hyperlipidemia and a family history of premature coronary disease. Past medical history review of systems social history and family history are documented in his admission notes. Hospital course: Patient was taken to surgery and triple-vessel bypass grafting was carried out without incident. Patient's postoperative course was uncomplicated and he was discharged home on the fifth postoperative day with instructions to return for follow-up in 1 month. Discharge medications are listed below. Specialty Discharge - Follow Up or Referrals Follow up with: John Atkins MD [Physician] - 1 Month Discharge Plan - Discharge Data Disposition: Disch To Home/Self Care Condition at Discharge: Stable Discharge Diet: advance to your usual diet Activity: resume usual activities as tolerated Hygiene: no restrictions Weight Bearing at Discharge: full weight bearing Driving: not for (10 days) - Discharge Medications Continue Ramipril [Altace] 10 mg PO DAILY [place]-3 Fatty Acids [Fish Oil Concentrate] 1,000 mg PO BID Atorvastatin [Lipitor] 40 mg PO BEDTIME Aspirin [Ecotrin] 81 mg PO BEDTIME metFORMIN [Glucophage] 500 mg PO BID Carvedilol 12.5 mg PO BID - Follow Up or Referral - Forms/Instructions Instructions: Heart Healthy Diet (GEN), Coronary Artery Bypass Graft, Hoop Cutter (GEN), Sternal Precautions, Hoop Cutter (GEN) Exam - Constitutional Vitals: Period Temp Pulse Resp BP Sys/Arvizu Pulse Ox Last 24 Hr 97.8 F-99.6 F 84-101 20-20 112-130/72-79 97-98 Discharge Results Procedures and tests throughout hospitalization: Pending Orders 02/05/17 14:01 Fresh Frozen Plasma Routine Red Blood Cells Leuko Red Routine Single Donor Platelets Routine Type and Screen Routine 02/11/17 04:00 XR chest 2V IN AM 02/12/17 04:00 XR chest 2V IN AM Bilirubin Profile Adult IN AM Comp Blood Count Auto Diff IN AM Comprehensive Metabolic Panel IN AM Hepatic (Liver) Panel IN AM Magnesium IN AM Troponin,CKMB & Ck Total IN AM Labs on day of discharge: Labs from last 24 hours 02/11/17 02/11/17 02/11/17 07:31 03:58 03:58 WBC 8.6 RBC 3.46 L Hgb 10.5 L Hct 31.2 L MCV 90.2 MCH 30 MCHC 33.7 RDW 13.2 Plt Count 184 D MPV 11.5 Neut % (Auto) 61.8 Lymph % (Auto) 26.4 [place] % (Auto) 8.3 Eos % (Auto) 2.1 Baso % (Auto) 0.2 Neut # (Auto) 5.3 Lymph # (Auto) 2.3 [place] # (Auto) 0.7 Eos # (Auto) 0.2 Baso # (Auto) 0.0 Immature Gran % 1.2 Nucleated RBC % 0.0 Immature Gran # 0.10 Nucleated RBCs # 0.00 Immature Plt Fraction 0.0 Sodium 140 Potassium 4.1 Chloride 106 Carbon Dioxide 25 Anion Gap 13.1 BUN 15 Creatinine 0.90 GFR Calculation 117 BUN/Creatinine Ratio 16.00 Glucose 116 H POC Glucose 115 H Calculated Osmolality 280.4 Calcium 8.0 L Magnesium 2.5 H Total Bilirubin 0.70 Direct Bilirubin 0.10 Indirect Bilirubin 0.6 AST 23 ALT 58 Alkaline Phosphatase 63 Total Creatine Kinase 92 D CK-MB (CK-2) < 1.0 Troponin I 0.199 H D Total Protein 5.8 L Albumin 2.9 L Globulin 2.9 Albumin/Globulin Ratio 1.0 L 02/10/17 02/10/17 02/10/17 20:27 16:18 12:05 WBC RBC Hgb Hct MCV MCH MCHC RDW Plt Count MPV Neut % (Auto) Lymph % (Auto) [place] % (Auto) Eos % (Auto) Baso % (Auto) Neut # (Auto) Lymph # (Auto) [place] # (Auto) Eos # (Auto) Baso # (Auto) Immature Gran % Nucleated RBC % Immature Gran # Nucleated RBCs # Immature Plt Fraction Sodium Potassium Chloride Carbon Dioxide Anion Gap BUN Creatinine GFR Calculation BUN/Creatinine Ratio Glucose POC Glucose 153 H 148 H 125 H Calculated Osmolality Calcium Magnesium Total Bilirubin Direct Bilirubin Indirect Bilirubin AST ALT Alkaline Phosphatase Total Creatine Kinase CK-MB (CK-2) Troponin I Total Protein Albumin Globulin Albumin/Globulin Ratio 02/10/17 08:10 WBC RBC Hgb Hct MCV MCH MCHC RDW Plt Count MPV Neut % (Auto) Lymph % (Auto) [place] % (Auto) Eos % (Auto) Baso % (Auto) Neut # (Auto) Lymph # (Auto) [place] # (Auto) Eos # (Auto) Baso # (Auto) Immature Gran % Nucleated RBC % Immature Gran # Nucleated RBCs # Immature Plt Fraction Sodium Potassium Chloride Carbon Dioxide Anion Gap BUN Creatinine GFR Calculation BUN/Creatinine Ratio Glucose POC Glucose 128 H Calculated Osmolality Calcium Magnesium Total Bilirubin Direct Bilirubin Indirect Bilirubin AST ALT Alkaline Phosphatase Total Creatine Kinase CK-MB (CK-2) Troponin I Total Protein Albumin Globulin Albumin/Globulin Ratio DS: Provider Date of admission: 02/05/17 09:30 Primary care physician: Loki Peralta, Attending physician on admission: John Atkins MD Consults: 02/07/17 10:12 Consult to Cardiac Rehabilitation [CONS] Routine Reason for Cardiac Rehabilitation: Other Consult Comment: Post CABG/heart surgery Consult to Diabetes Center, Educator [CONS] Routine Reason for Rag Sorter And Cutter: Diabetes Education Initial Insulin Education Consult Comment: insulin education Consult to Dietitian [CONS] Routine Reason for Dietitian: Dietary Consult Consult Comment: Cardiac, low salt, low cholesterol diet Consult to Physical Therapy [CONS] Routine Reason for Physical Therapy: Other Consult Comment: CV Rehab Discharging clinician: John Atkins MD Expected date of discharge: 02/11/17
[2017-02-11 08:20] VITALS: BP 124/79
[2017-02-11] MEDS: PANTOPRAZOLE 40 MG TABLET PO SCH (08:35)
[2017-02-11] MEDS: OMEGA 3 ACID ETHYL ESTERS 1 GM CAPSULE PO SCH (08:35)
[2017-02-11] MEDS: FERROUS SULFATE 325 MG TABLET PO SCH (08:35)
[2017-02-11] MEDS: DOCUSATE SODIUM 100 MG CAPSULE PO SCH (08:35)
[2017-02-11] MEDS: metFORMIN 500 MG TABLET PO SCH (08:36)
[2017-02-11] MEDS: CARVEDILOL 12.5 MG TABLET PO SCH (08:36)
[2017-02-11] MEDS: CHLORHEXIDINE 0.12% ORAL RINSE 60 ML BOTTLE SWISH/SPIT SCH (08:37)
[2017-02-11] MEDS: INSULIN REGULAR 100 UNIT/ML SUBCUT SCH (08:38)
--- NOTE | 2017-02-11 09:40 | XRay Report ---
XR chest 2V Date: 02/11/2017 4:00 AM History: Shortness of breath Comparison: 02/09/2017 Technique: PA and lateral chest Findings: The heart is smaller in size with recent median sternotomy. Stable right IJ CVP line. Reduced atelectasis at the lung bases. Postoperative findings in the left shoulder with degenerative changes. Impression: Status post median sternotomy with reduced atelectasis at the lung bases. Underlying COPD. PROCEDURE INTERPRETED AT [facility] DEPARTMENT OF RADIOLOGY Final Report Signed by: Dr. Suzy Aquino
== END 2017-02-11 10:00 | disposition home or self-care (01) | DRG 236 ==
LOC: N.TELEN 09:30 → N.TELES 12:37 → N.CVR 02-06 08:12 → N.TELES 02-07 12:41